=== PATIENT | female | born 1955 | race Caucasian/White ===

== ENCOUNTER 2018-11-18 23:18 | Inpatient (IN) | payer BC, OTHER ==
--- OUTSIDE RECORDS SUMMARY | 2018-11-18 23:23 | XMS REPORT | Continuity of Care Document ---
:1955 Author Organization Interface Problems Problem Status Onset Classification Date Comments Source Date Reported Z12.31 - ENCNTR Active 04/22/20 [facility] SCREEN MAMMOGRAM 17 [place] FOR [place] ABDOMINAL PAIN Active 06/12/20 [place] 15 [place] Hypothyroid Resolved 05/06/20 Problem 11/10/2015 OPID 15 [place] SCREENING COLON Active 05/05/20 [place] CANCER-V76.51 / 15 [place] FAMILY H SCREENING Inactive 05/01/20 Condition 05/01/2015 EXAMINATION FOR 15 Medical OTHER SPECIFIED Group VIRAL DISEASES FH COLON CANCER Active 05/01/20 Condition 05/01/2015 15 Medical Group SCREENING FOR Active 05/01/20 Condition 05/01/2015 COLON CANCER 15 Medical Group Family history of Active 05/01/20 Problem 11/11/2018 Data cancer of 15 migrated Medical colon<sup>2</sup> from [facility], [facility] OPID on 05/17/15. [place] Family history of Active 05/01/20 Problem 11/10/2015 Data OPID cancer of 15 migrated [place] colon<sup>5</sup> from [facility], [facility] [place] on 05/17/15. [place] Screening for Active 05/01/20 Problem 11/10/2015 Data OPID malignant 15 migrated [place] neoplasm of from [facility], colon<sup>12</sup [facility] [place] > on 05/17/15. [place] OSTEOPENIA Active 01/29/20 Condition 05/01/2015 15 Medical Group Osteopenia<sup>5, Active 01/29/20 Problem 11/11/2018 Data 6</sup> 15 migrated Medical from [facility], [facility] OPID on 04/02/15. [place] Osteopenia<sup>10 Active 01/29/20 Problem 11/10/2015 Data OPID , 11</sup> 15 migrated [facility] from [facility], [facility] Sugar on 04/02/15. [place] Osteopenia<sup>9< Active 01/29/20 Problem 05/12/2015 Data [place] /sup> 15 migrated Land from [facility] on 04/02/15. AFTERCARE, Active 07/23/20 Condition 05/01/2015 LONG-TERM USE, 14 Medical MEDICATIONS NEC Group Aftercare<sup>2</ Resolved 07/23/20 Problem 11/10/2015 Data OPID sup> 14 migrated [facility] from [facility], [facility] Sugar on 02/22/15. [place] CHEST PAIN, Inactive 04/15/20 Condition 05/01/2015 ATYPICAL 14 Medical Group Atypical chest Active 04/15/20 Problem 11/10/2015 Data OPID pain<sup>4</sup> 14 migrated [facility] from [facility], [facility] Sugar on 02/22/15. Land HALLUX VALGUS, Inactive 11/07/19 Condition 05/01/2015 ACQUIRED 14 Medical Group HAMMER TOE, Inactive 11/07/19 Condition 05/01/2015 ACQUIRED 14 Medical Group ONYCHOMYCOSIS Inactive 11/07/19 Condition 05/01/2015 14 Medical Group Acquired hallux Active 11/07/19 Problem 11/10/2015 Data OPID valgus<sup>1</sup 14 migrated [place] > from [facility], [facility] Sugar on 02/22/15. [place] Hammer Active 11/07/19 Problem 11/10/2015 Data OPID toe<sup>6</sup> 14 migrated [facility] from [facility], [facility] Sugar on 02/22/15. [place] Hammer Active 11/07/19 Problem 05/12/2015 Data [place] toe<sup>5</sup> 14 migrated Land from [facility] on 02/22/15. ARTHRITIS Active 05/01/20 Condition 05/01/2015 13 Medical Group Arthritis<sup>1</ Active 05/01/20 Problem 11/11/2018 Data MH sup> 13 migrated Medical from [facility], [facility] OPID on 02/22/15. [place] Arthritis<sup>3</ Active 05/01/20 Problem 11/10/2015 Data OPID sup> 13 migrated [facility] from [facility], [facility] Sugar on 02/22/15. [place] ROUTINE Inactive 03/21/20 Condition 05/01/2015 GYNECOLOGICAL 12 Medical EXAMINATION Group HYPERTENSION Active Condition 05/01/2015 Medical Group HYPOTHYROIDISM Active Condition 05/01/2015 Medical Group HYPERLIPIDEMIA Active Condition 05/01/2015 Medical Group Acute diarrhea Active Problem 11/11/2018 Medical Group, OPID [place] Asthma Resolved Problem 11/11/2018 Medical Group, OPID [place], [place] Ongoing use of Active Problem 11/11/2018 possibly toxic Medical medication Group, OPID [place] Benign tumor of Resolved Problem 11/11/2018 breast Medical Group, OPID [place] FHx: breast Active Problem 11/11/2018 cancer Medical Group, OPID [place] FH: ovarian Active Problem 11/11/2018 cancer Medical Group, OPID [place] History of acute Active Problem 11/11/2018 pancreatitis Medical Group, OPID [place] Histoplasmosis Resolved Problem 11/11/2018 Medical Group, OPID [place] Hyperlipidemia<leyva Active Problem 11/11/2018 Data p>3</sup> migrated Medical from [facility], [facility] OPID on 02/22/15. [place] Hypertension Active Problem 11/11/2018 Medical Group, OPID [place], [place] Hypothyroidism<leyva Active Problem 11/11/2018 Data p>4</sup> migrated Medical from [facility], [facility] OPID on 02/22/15. [place] Obesity Active Problem 11/11/2018 Medical Group, OPID [place], [place] Fatty liver Active Problem 11/11/2018 Medical Group, OPID [place] Acute Active Problem 11/10/2015 OPID pancreatitis [place] Heartburn Active Problem 11/10/2015 OPID [place], [place] Hyperlipidemia<leyva Active Problem 11/10/2015 Data OPID p>7</sup> migrated [facility] from [facility], [facility] on 02/22/15. [place] Hypertensive Resolved Problem 11/10/2015 Data OPID episode<sup>8</leyva migrated [place] p> from [facility], [facility] on 02/22/15. [place] Hypothyroidism<leyva Active Problem 11/10/2015 Data OPID p>9</sup> migrated [facility] from [facility], [facility] [place] on 02/22/15. [place] Vertigo Resolved Problem 11/10/2015 OPID [place] Hyperlipidemia<leyva Active Problem 05/12/2015 Data [place] p>6</sup> migrated Land from [facility] on 02/22/15. Hypertensive Active Problem 05/12/2015 Data [place] episode<sup>7</leyva migrated Land p> from [facility] on 02/22/15. Hypothyroidism<leyva Active Problem 05/12/2015 Data [place] p>8</sup> migrated Land from [facility] on 02/22/15. CHRONIC Active Sugar PANCREATITIS Land Medications Medication Details Route Status Patient Ordering Order Source Instructions Provider Date Phentermine 37.5 mg=1 Active 02/15/ Hydrochloride 37.5 MG cap, PO, 2018 Medical Oral Capsule Daily, # 30 Group tab, 0 Refill(s) telmisartan 80 mg 80 mg=1 tab, Active 09/14/ oral tablet PO, Daily, # 2017 Medical 90 tab, 3 Group Refill(s), Pharmacy: [facility] [id number] Hydrochlorothiazide 1 tab, PO, Active [place] 12.5 MG / telmisartan Daily, # 30 2014 [place] 80 MG Oral Tablet tab, 0 [Micardis-HCT Refill(s) 80/12.5] Levothyroxine Sodium 125 Active Sugar 0.125 MG Oral Tablet microgram=1 2014 [facility] [Synthroid] tab, PO, Daily, # 30 tab, 0 Refill(s) azilsartan medoxomil 1 tab, No Longer Sugar 40 MG / Route: PO, Active 2014 Chlorthalidone 12.5 Dosing MG Oral Tablet Weight 88.636, kg, Daily, Start date: 06/14/15 9:00:00, Duration: 30 day, Stop date: 07/13/15 9:00:00 Diovan 160 mg, 1 Inactive [place] tab, Route: 2014 PO, Drug form: TAB, Daily, Start date: 06/14/15 9:00:00, Duration: 30 day, Stop date: 07/13/15 9:00:00Notes : Same as Diovan hydrochlorothiazide 12.5 mg, 0.5 Inactive [place] 25 mg oral tablet tab, Route: 2014 [facility] PO, Drug form: TAB, Daily, Start date: 06/14/15 9:00:00, Duration: 30 day, Stop date: 07/13/15 9:00:00Notes : (Same as: Hydrodiuril) With food. Motrin 200 mg, 1 No Longer [place] tab, Route: Active 2014 [facility] PO, Drug form: TAB, Q6H, Dosing Weight 88.636, kg, PRN Headache 6-10, Start date: 06/13/15 11:20:00, Duration: 30 day, Stop date: 07/13/15 11:19:00Note s: (Same as: Advil) Give with food. Synthroid 125 No Longer [place] microgram, 1 Active 2014 tab, Route: PO, Drug form: TAB, Q630AM, Dosing Weight 88.636, kg, Start date: 06/13/15 9:42:00, Duration: 30 day, Stop date: 07/13/15 6:30:00Notes : Take 1 hour before or 2 hours after meal; Enteral feeds may interefere with the absorption of this medication. (Same as:Levothroi d) Tums 500 mg, 1 No Longer [place] tab, Route: Active 2014 CHEW, Drug form: CHEWTAB, Daily, Dosing Weight 88.636, kg, PRN as needed for indigestion, Start date: 06/13/15 9:25:00, Duration: 30 day, Stop date: 07/13/15 9:24:00Notes : (Same As: Tums) Calcium Carbonate 500 fu=237 mg elemental calcium Dose= mg calcium carbonate ( mg elemental calcium) Tums =1 tab, Active [place] CHEW, Daily, 2014 PRN acid reflux, 0 Refill(s) Enoxaparin 40 mg, 0.4 No Longer Sugar mL, Route: Active 2014 [facility] SUB-Q, Drug form: INJ, [id number], Dosing Weight 88.636, kg, For CrCl >=30 mL/min, Start date: 06/12/15 14:00:00, Duration: 30 day, Stop date: 07/11/15 14:00:00Note s: (Same as: Lovenox) Zofran 4 mg, 2 mL, No Longer [place] Route: IVP, Active 2014 Drug form: INJ, Q6H, Dosing Weight 88.636, kg, PRN as needed for nausea/vomit ing, Priority: Routine, Start date: 06/12/15 13:10:00, Duration: 30 day, Stop date: 07/12/15 13:09:00Note s: (Same as: Zofran) MEDICATION WASTE Product Size: 4 mg Product Wasted: ___ mg Morphine 4 mg, 2 mL, No Longer [place] Route: IVP, Active 2014 Drug form: INJ, Q4H, Dosing Weight 88.636, kg, PRN Pain Score 6-10, Priority: Routine, Start date: 06/12/15 13:10:00, Duration: 30 day, Stop date: 07/12/15 13:09:00Note s: (Same as:MORPhine Sulfate) Saline Flush 0.9% 10 ml, No Longer [place] Route: IVP, Active 2014 Drug Form: INJ, Dosing Weight 88.636, kg, PRN, PRN Line Flush, Start date: 06/12/15 13:07:00, Duration: 30 day, Stop date: 07/12/15 13:06:00Note s: (Same as: BD Posiflush) Glucose 50 MG/ML / 1,000 mL, No Longer [place] Sodium Chloride Rate: 125 2014 0.0769 MEQ/ML ml/hr, Injectable Solution Infuse over: 8 hr, Route: IV, Dosing Weight 88.636 kg, Total Volume: 1,000, Start date: 06/12/15 13:07:00, Stop date: 07/12/15 13:06:00 Ondansetron 4 mg, 2 mL, No Longer [place] Route: IVP, Active 2014 Drug form: INJ, Q6H, Dosing Weight 88.636, kg, PRN Nausea & Vomiting, Start date: 06/12/15 13:07:00, Duration: 30 day, Stop date: 07/12/15 13:06:00Note s: (Same as: Zofran) MEDICATION WASTE Product Size: 4 mg Product Wasted: ___ mg Morphine 2 mg, 1 mL, No Longer [place] Route: IVP, Active 2014 [facility] Drug form: INJ, Q4H, Dosing Weight 88.636, kg, PRN Pain Score 7-10, Start date: 06/12/15 13:07:00, Duration: 30 day, Stop date: 07/12/15 13:06:00Note s: (Same as:MORPhine Sulfate) Morphine 4 mg, 2 mL, Inactive [place] Route: IVP, 2014 [facility] Drug form: INJ, ONCE, Dosing Weight 89.568, kg, Priority: STAT, Start date: 06/12/15 10:56:00, Stop date: 06/12/15 10:56:00Note s: (Same as:MORPhine Sulfate) Ondansetron 4 mg, 2 mL, Inactive [place] Route: IVP, 2014 [facility] Drug form: INJ, ONCE, Dosing Weight 89.568, kg, Priority: STAT, Start date: 06/12/15 10:56:00, Stop date: 06/12/15 10:56:00Note s: (Same as: Zofran) MEDICATION WASTE Product Size: 4 mg Product Wasted: ___ mg Saline Flush 0.9% 10 mL, No Longer [place] Route: IVP, Active 2014 [facility] Drug Form: INJ, Dosing Weight 89.568, kg, PRN, PRN Line Flush, Start date: 06/12/15 10:56:00, Duration: 30 day, Stop date: 07/12/15 10:55:00Note s: (Same as: BD Posiflush) Sodium Chloride 0.154 1,000 mL, Inactive [place] MEQ/ML Injectable 1000 ml/hr, 2014 Solution Infuse Over: 1 hr, Route: IV, 1,000, Drug form: INJ, ONCE, Priority: STAT, Dosing Weight 89.568 kg, Start date: 06/12/15 10:56:00, Duration: 1 doses or times, Stop date: 06/12/15 10:56:00 Naloxone 0.1 mg, 0.25 Inactive Sugar mL, Route: 2014 [facility] IVP, Drug form: INJ, Q2MIN, Dosing Weight 90.909, kg, PRN Narcotic Reversal, Start date: 05/09/15 9:17:00, Duration: 4 doses or times, Stop date: Limited # of timesNotes: (Same as: Narcan) Flumazenil 0.1 mg, 1 Inactive Sugar mL, Route: 2014 [facility] IVP, Drug form: INJ, Q5Min, Dosing Weight 90.909, kg, PRN Other -See Comment, Start date: 05/09/15 9:17:00, Duration: 30 day, Stop date: 06/08/15 9:16:00Notes : (Same as: Romazicon) Ranitidine 150 MG 150 mg=1 Active [place] Oral Tablet [Zantac] tab, PO, 2014 [facility] PRN, 0 Refill(s) telmisartan 80 MG 80 mg=1 tab, Active [place] Oral Tablet PO, Daily, 0 2014 [facility] [Micardis] Refill(s) Levothyroxine Sodium 125 Active [place] 0.125 MG Oral Tablet microgram=1 2014 [facility] [Synthroid] tab, PO, Daily, 0 Refill(s) PREPOPIK 10-3.5-12 follow Active MG-GM-GM PACK handout 2014 Medical directions Group SYNTHROID 125 MCG 1 po daily Active TABS 2012 Medical Group MICARDIS HCT 80-12.5 1 qd Active MG TABS 2012 Medical Group SYNTHROID 125 MCG 1 po daily Active TABS 2013 Medical Group SYNTHROID 125 MCG 1 po daily Active TABS 2013 Medical Group SYNTHROID 125 MCG 1 po daily Active TABS 2013 Medical Group Allergies, Adverse Reactions, Alerts Substance Category Reaction Severity Reaction Status Date Comments Source type Reported SULFA Drug SULFA allergy Medical Group sulfa Assertion rash Drug Active Data drugs<sup>1 allergy migrated Medical </sup> from [facility] on 04/24/15. Originally documented as SULFA. Immunizations Immunization Date Given Site Status Last Updated Comments Source Results Order Name Results Value Reference Date Interpretation Comments Source Range Breast Breast Mammo 05/22 - OPID Mammo Scrn Scrn DAVID /2017 - [place] DAVID incl incl CAD MA [facility] CAD MA Read by: Robert Lanier MD Dictated Date/time: 05/22/18 14:26 BILATERAL DIGITAL SCREENING MAMMOGRAM WITH CAD: 05/22/2018 Electronically Signed by: Robert Lanier MD 05/22/18 14 :26 FINAL REPORT CLINICAL: /Routine. Current study was evaluated with a Computer Aided Detection (CAD) system. COMPARISON:Comparison is made to exams dated: 04/29/2017 mammogram, 2015 mammogram, and 07/04/2013 mammogram - [facility]. TECHNIQUE: Mammographic views were obtained using digital acquisition. Current study was also evaluated with a Computer Aided Detection (CAD) system. FINDINGS: There are scattered fibroglandular densities in both breasts. There are multiple circumscribed masses seen bilaterally and are stable. There are post operative findings in the right breast. No significant masses, calcifications, or other findings are seen in either breast. There has been no significant interval change. IMPRESSION: BENIGN RECOMMENDATION:Multiple stable circumscribed masses bilaterally. There is no mammographic evidence of malignancy. A 1 year screening mammogram is recommended.(05/23/2019) This exam was interpreted at [id number] at [facility]. Professional services are provided by the [facility]. Robert Lanier M.D. ak/penrad:05/22/2018 14:26:17 Auto Hauler(s): Naomy Alegre [facility] letter sent: BI-RADS 1/2 Mammogram BI-RADS: 2 Benign Breast Breast Mammo - BREAST MAMMO SCRN DAVID INCL CAD MA 04/29 - OPID Mammo Scrn Scrn DAVID /2016 - [place] DAVID incl incl CAD MA BILATERAL DIGITAL SCREENING MAMMOGRAM WITH CAD: 2016 [facility] CAD MA CLINICAL: Routine/Z12.31. Read by: Gloria Herbert DO Dictated Date/time: 04/29/17 16:05 Electronically Signed by: Gloria Herbert DO 04/29/17 16:05 FINAL REPORT Current study was evaluated with a Computer Aided Detection (CAD) system. Comparison is made to exams dated: 11/07/2015 mammogram, 07/04/2013 mammogram - [facility], 02/23/2012 mamm[facility] - [facility] and 10/21/2010 mammogram. There are scattered fibroglandular densities in both breasts. There are post operative findings in the right breast. No significant masses, calcifications, or other findings are seen in either breast. There has been no significant interval change. IMPRESSION: BENIGN There is no mammographic evidence of malignancy. A 1 year screening mammogram is recommended. Professional services are provided by the [facility]. Dr. Gloria Herbert D.O. ht/penrad:04/29/2017 16:05:56 Auto Hauler: Mary LONGORIA (R)), [facility] This exam was dictated and interpreted by [id number] at [facility][note 3]. letter sent: Normal exam Mammogram BI-RADS: 2 Benign Digital Digital - DIGITAL MAMMO SCREENING DAIVD MA 11/07 - OPID Mammo Mammo /2015 - [place] Screening Screening BILATERAL DIGITAL SCREENING MAMMOGRAM WITH CAD: 2015 [facility] David MA David MA CLINICAL: Routine/Same. Read by: Robert Lanier MD Dictated Date/time: 11/07/15 09:57 Electronically Signed by: Robert Lanier MD 11/07/15 09:57 FINAL REPORT Current study was evaluated with a Computer Aided Detection (CAD) system. Comparison is made to exams dated: 07/04/2013 mammogram - [facility] and 02/23/2012 mammogram - [facility]. There are scattered fibroglandular densities in both breasts. Multiple well circumscribed masses are present in both breasts. No significant masses, calcifications, or other findings are seen in either breast. There has been no significant interval change. IMPRESSION: BENIGN There is no mammographic evidence of malignancy. A 1 year screening mammogram is recommended. Robert martin/penrad:11/07/2015 09:57:52 Auto Hauler: Mary LUCERO (R)(Ana), [facility] This exam was dictated and interpreted by [id number] at [facility]. letter sent: Normal exam Mammogram BI-RADS: 2 Benign CHEM PANEL eGFR 70 06/14 Result Comment: The eGFR is calculated using the CKD-EPI formula. In most young, healthy individuals the eGFR will be >90 mL/ min/1.73m2. The eGFR declines with age. An eGFR of 60-89 may be normal in mL/min/1.73 /2014 some populations, particularly the elderly, for whom the CKD-EPI formula has not been extensively validated. Use of the eGFR is not recommended in the following populations: [place] m2 Individuals with unstable creatinine concentrations, including patients and those with serious co-morbid conditions. Patients with extremes in muscle mass or diet. The data above are obtained from the National Kidney Disease Education Program (NKDEP) which additionally recommends that when the eGFR is used in patients with extremes of body mass index for purposes of drug dosing, the eGFR should be multiplied by the estimated BMI. CHEM PANEL Potassium 3.7 meq/L 3.5 - 5.1 06/14 [place] CHEM PANEL CO2 28 meq/L 24 - 32 06/14 [place] CHEM PANEL Chloride Lvl 110 meq/L 95 - 109 06/14 [place] CHEM PANEL Calcium Lvl 8.2 mg/dL 8.5 - 10.5 06/14 [place] CHEM PANEL Glucose Lvl 114 mg/dL 70 - 99 06/14 [place] CHEM PANEL BUN 7 mg/dL 7 - 22 06/14 [place] CHEM PANEL Creatinine 0.9 mg/dL 0.5 - 1.4 06/14 [place] l [place] CHEM PANEL Sodium Lvl 143 meq/L 135 - 145 06/14 [place] CHEM PANEL AGAP 8.7 meq/L 10.0 - 06/14 [place] 20.0 [place] HEMATOLOGY Hgb 12.2 g/dL 12.0 - 06/14 Sugar 16.0 [facility] HEMATOLOGY Hct 36.8 % 36.0 - 06/14 [place] 48.0 /2014 [facility] HEMATOLOGY MCH 28.9 pg 27.0 - 06/14 [place] 31.0 /2014 [facility] HEMATOLOGY MCHC 33.0 g/dL 32.0 - 06/14 [place] 36.0 [facility] HEMATOLOGY MCV 87.6 fL 80.0 - 06/14 [place] 98.0 /2014 [facility] HEMATOLOGY WBC 4.7 K/CMM 3.7 - 10.4 06/14 [place] /2014 [facility] HEMATOLOGY RBC 4.21 M/CMM 4.20 - 06/14 [place] 5.40 /2014 [facility] HEMATOLOGY MPV 8.0 fL 7.4 - 10.4 06/14 [place] /2014 [facility] HEMATOLOGY RDW 14.0 % 11.5 - 06/14 [place] 14.5 /2014 [facility] HEMATOLOGY Platelet 205 K/CMM 133 - 450 06/14 [place] /2014 [facility] HEMATOLOGY Eosinophils 0.2 K/CMM 0.0 - 0.5 06/14 [place] # /2015 [facility] HEMATOLOGY Segs-Bands # 2.3 K/CMM 1.5 - 8.1 06/14 [place] /2014 [facility] HEMATOLOGY Monocytes # 0.5 K/CMM 0.0 - 0.8 06/14 [place] /2014 [facility] HEMATOLOGY Lymphocytes 1.7 K/CMM 1.0 - 5.5 06/14 [place] # /2014 [facility] HEMATOLOGY Basophils # 0.0 K/CMM 0.0 - 0.2 06/14 /2014 [facility] HEMATOLOGY Lymphocytes 36.4 % 20.0 - 06/14 [place] 40.0 /2014 [facility] HEMATOLOGY Segs 48.4 % 45.0 - 06/14 [place] 75.0 /2014 [facility] HEMATOLOGY Basophils 0.4 % 0.0 - 1.0 06/14 [place] /2014 [facility] HEMATOLOGY Eosinophils 5.0 % 0.0 - 4.0 06/14 [place] /2014 [facility] HEMATOLOGY Monocytes 9.8 % 2.0 - 12.0 06/14 [place] /2014 [facility] Abdomen wo Abdomen wo MRCP, 06/13/201506/13 - [facility] contrast contrast MRI /2014 - [facility] MRI HISTORY: Abdominal pain. Pancreatitis. Read by: Jcarlos Jackman MD Dictated Date/time: 06/13/15 13:14 Electronically Signed by: Jcarlos Jackman MD 06/13/15 14:06 FINAL REPORT TECHNIQUE: Multiplanar sequences through the bile ducts and upper abdomen were obtained. FINDINGS: The common bile duct measures 7 mm in diameter with mild tapered narrowing of the distal common bile duct, possibly related to acute pancreatitis.. Intrahepatic bile ducts are nondilated. No evidence of filling defects within the bile ducts. Thickwalled edematous gallbladder, new finding compared to abdomen right upper quadrant ultrasound dated 06/12/2015. No filling defects within the gallbladder noted. Nondilated pancreatic duct. The pancreas is not enlarged. Mild edema/inflammation noted near the distal body and tail of the pancreas which may reflect mild acute interstitial edematous pancreatitis. No evidence of peripancreatic fluid collections. CHEM PANEL Lipase Lvl 888 unit/L 73 - 393 06/13 [place] /2014 [place] ELECTROLYTE Sodium Lvl 143 meq/L 135 - 145 06/13 [place] S /2014 [place] ELECTROLYTE Potassium 3.7 meq/L 3.5 - 5.1 06/13 [place] S Lvl /2014 [place] ELECTROLYTE Glucose Lvl 121 mg/dL 70 - 99 06/13 [place] S /2014 [place] ELECTROLYTE Chloride Lvl 108 meq/L 95 - 109 06/13 [place] S /2014 [place] ELECTROLYTE Calcium Lvl 8.1 mg/dL 8.5 - 10.5 06/13 [place] S /2014 [place] ELECTROLYTE CO2 31 meq/L 24 - 32 06/13 [place] S /2014 [place] ELECTROLYTE Creatinine 0.9 mg/dL 0.5 - 1.4 06/13 [place] S Lvl [place] ELECTROLYTE BUN 9 mg/dL 7 - 22 06/13 [place] S /2014 [place] ELECTROLYTE eGFR 70 06/13 Result Comment: The eGFR is calculated using the CKD-EPI formula. In most young, healthy individuals the eGFR will be >90 mL/ min/1.73m2. The eGFR declines with age. An eGFR of 60-89 may be normal in S mL/min/1.73 /2014 some populations, particularly the elderly, for whom the CKD-EPI formula has not been extensively validated. Use of the eGFR is not recommended in the following populations: [place] m2 Individuals with unstable creatinine concentrations, including patients and those with serious co-morbid conditions. Patients with extremes in muscle mass or diet. The data above are obtained from the National Kidney Disease Education Program (NKDEP) which additionally recommends that when the eGFR is used in patients with extremes of body mass index for purposes of drug dosing, the eGFR should be multiplied by the estimated BMI. ELECTROLYTE AGAP 7.7 meq/L 10.0 - 06/13 [place] S 20.0 [place] HEMATOLOGY Eosinophils 0.2 K/CMM 0.0 - 0.5 06/13 [place] # /2014 [place] HEMATOLOGY Monocytes # 0.4 K/CMM 0.0 - 0.8 06/13 [place] /2014 [place] HEMATOLOGY Segs 54.5 % 45.0 - 06/13 MH [place] 75.0 /2014 [place] HEMATOLOGY Eosinophils 4.0 % 0.0 - 4.0 06/13 [place] /2014 [place] HEMATOLOGY Segs-Bands # 2.3 K/CMM 1.5 - 8.1 06/13 [place] /2014 [place] HEMATOLOGY Basophils 0.6 % 0.0 - 1.0 06/13 [place] HEMATOLOGY Plt Morph Normal 06/13 [place] /2014 [place] (06/13/15 5:50 AM) HEMATOLOGY Monocytes 9.9 % 2.0 - 12.0 06/13 [place] HEMATOLOGY Lymphocytes 31.0 % 20.0 - 06/13 MH [place] 40.0 [place] HEMATOLOGY Basophils # 0.0 K/CMM 0.0 - 0.2 06/13 /2014 [place] HEMATOLOGY Lymphocytes 1.3 K/CMM 1.0 - 5.5 06/13 [place] # /2014 [place] HEMATOLOGY MCHC 34.0 g/dL 32.0 - 06/13 [place] 36.0 /2014 [place] HEMATOLOGY RDW 13.2 % 11.5 - 06/13 MH [place] 14.5 /2014 [place] HEMATOLOGY Platelet 209 K/CMM 133 - 450 06/13 [place] /2014 [place] HEMATOLOGY MPV 7.5 fL 7.4 - 10.4 06/13 [place] /2014 [place] HEMATOLOGY Hgb 12.2 g/dL 12.0 - 06/13 [place] 16.0 /2014 [place] HEMATOLOGY RBC 4.15 M/CMM 4.20 - 06/13 MH [place] 5.40 /2014 [place] HEMATOLOGY Hct 35.8 % 36.0 - 06/13 MH [place] 48.0 /2014 [place] HEMATOLOGY MCV 86.2 fL 80.0 - 06/13 MH [place] 98.0 /2014 [place] HEMATOLOGY MCH 29.3 pg 27.0 - 06/13 MH [place] 31.0 [place] HEMATOLOGY WBC 4.3 K/CMM 3.7 - 10.4 06/13 [place] /2014 [place] LIPIDS VLDL 35 06/13 [place] /2014 [place] LIPIDS LDL 74 mg/dL <=99 mg/dL 06/13 [place] (Calculated) [place] LIPIDS CHD Risk 3.48 3.90 - 06/13 MH [place] 5.80 /2014 [place] LIPIDS Chol 153 mg/dL <=199 06/13 [place] mg/dL [place] LIPIDS HDL 44 mg/dL >=61 mg/dL 06/13 [place] LIPIDS Trig 173 mg/dL <=149 06/13 [place] mg/dL [place] CHEM PANEL eGFR 70 06/12 Result Comment: The eGFR is calculated using the CKD-EPI formula. In most young, healthy individuals the eGFR will be >90 mL/ min/1.73m2. The eGFR declines with age. An eGFR of 60-89 may be normal in [place] mL/min/1.73 /2014 some populations, particularly the elderly, for whom the CKD-EPI formula has not been extensively validated. Use of the eGFR is not recommended in the following populations: [place] m2 Individuals with unstable creatinine concentrations, including patients and those with serious co-morbid conditions. Patients with extremes in muscle mass or diet. The data above are obtained from the National Kidney Disease Education Program (NKDEP) which additionally recommends that when the eGFR is used in patients with extremes of body mass index for purposes of drug dosing, the eGFR should be multiplied by the estimated BMI. CHEM PANEL AST 308 unit/L 0 - 37 06/12 [place] CHEM PANEL Alk Phos 119 unit/L 39 - 136 06/12 [place] CHEM PANEL Bili Total 2.1 mg/dL 0.2 - 1.3 06/12 [place] CHEM PANEL ALT 502 unit/L 0 - 65 06/12 [place] CHEM PANEL Calcium Lvl 9.5 mg/dL 8.5 - 10.5 06/12 [place] CHEM PANEL CO2 31 meq/L 24 - 32 06/12 [place] CHEM PANEL Total 7.8 g/dL 6.4 - 8.4 06/12 [place] Protein [place] CHEM PANEL Albumin Lvl 4.0 g/dL 3.5 - 5.0 06/12 [place] CHEM PANEL Sodium Lvl 141 meq/L 135 - 145 06/12 [place] CHEM PANEL Potassium 3.6 meq/L 3.5 - 5.1 06/12 [place] Lvl [place] CHEM PANEL Chloride Lvl 103 meq/L 95 - 109 06/12 [place] CHEM PANEL Creatinine 0.9 mg/dL 0.5 - 1.4 09/17 [facility] [place] Lvl /2014 [place] CHEM PANEL Glucose Lvl 97 mg/dL 70 - 99 06/12 [place] /2014 [place] CHEM PANEL BUN 11 mg/dL 7 - 22 06/12 [place] /2014 [place] CHEM PANEL A/G Ratio 1.1 0.7 - 1.6 06/12 [place] /2014 [place] CHEM PANEL AGAP 10.6 meq/L 10.0 - 06/12 [place] 20.0 /2014 [place] CHEM PANEL B/C Ratio 12 6 - 25 06/12 [place] /2014 [place] CHEM PANEL Globulin 3.8 g/dL 2.0 - 4.0 06/12 [place] /2014 [place] CHEM PANEL Lipase Lvl 13077 73 - 393 06/12 [facility] [place] unit/L /2014 [place] CHEM PANEL Amylase Lvl 569 unit/L 25 - 115 06/12 [place] /2014 [place] HEMATOLOGY Eosinophils 0.7 % 0.0 - 4.0 06/12 [place] /2014 [place] HEMATOLOGY Segs-Bands # 7.4 K/CMM 1.5 - 8.1 06/12 [place] HEMATOLOGY Basophils 0.4 % 0.0 - 1.0 06/12 [place] /2014 [place] HEMATOLOGY Lymphocytes 1.1 K/CMM 1.0 - 5.5 06/12 [place] # /2014 [place] HEMATOLOGY Monocytes # 0.6 K/CMM 0.0 - 0.8 06/12 [place] /2014 [place] HEMATOLOGY Segs 80.1 % 45.0 - 06/12 [facility] [place] 75.0 /2015 [place] HEMATOLOGY Lymphocytes 12.3 % 20.0 - 06/12 [place] 40.0 /2015 [place] HEMATOLOGY Monocytes 6.5 % 2.0 - 12.0 06/12 [place] /2014 [place] HEMATOLOGY Eosinophils 0.1 K/CMM 0.0 - 0.5 06/12 [facility] [place] # /2015 [place] HEMATOLOGY Basophils # 0.0 K/CMM 0.0 - 0.2 06/12 [place] /2014 [place] HEMATOLOGY Platelet 260 K/CMM 133 - 450 06/12 [place] /2014 [place] HEMATOLOGY MPV 7.9 fL 7.4 - 10.4 06/12 [place] /2014 [place] HEMATOLOGY RDW 13.2 % 11.5 - 06/12 [place] 14.5 /2015 [place] HEMATOLOGY MCHC 33.4 g/dL 32.0 - 06/12 [facility] [place] 36.0 /2015 [place] HEMATOLOGY WBC 9.2 K/CMM 3.7 - 10.4 06/12 [place] /2014 [facility] HEMATOLOGY MCH 28.8 pg 27.0 - 06/12 [place] 31.0 /2014 [facility] HEMATOLOGY Hct 42.3 % 36.0 - 06/12 [place] 48.0 /2014 [facility] HEMATOLOGY MCV 86.2 fL 80.0 - 06/12 [place] 98.0 /2014 [facility] HEMATOLOGY Hgb 14.1 g/dL 12.0 - 06/12 [place] 16.0 [facility] HEMATOLOGY RBC 4.91 M/CMM 4.20 - 06/12 [place] 5.40 /2014 [facility] Abdomen RUQ Abdomen RUQ ABDOMEN RIGHT UPPER QUADRANT ULTRASOUND, 06/12/201506/12 - [facility] US US /2014 - [facility] HISTORY: Abdominal pain. Read by: Jcarlos Jackman MD Dictated Date/time: 06/12/15 12:02 Electronically Signed by: Jcarlos Jackman MD 06/12/15 12:05 FINAL REPORT The gallbladder is normal in size with no thickening of the gallbladder wall or gallstones. The liver is extremely echogenic compatible with fatty change without evidence of liver mass. The common bile duct measures 8 mm in diameter which is mildly dilated. Nondilated intrahepatic bile ducts. The pancreas is obscured by bowel gas. Normal right kidney. The visualized portions of the aorta and inferior vena cava look normal. No evidence of ascites. CONCLUSION: Normal gallbladder. Severe fatty liver. Mildly dilated common bile duct (8 mm). Pancreas obscured by bowel gas. Abdomen Abdomen EXAM: Abdomen 3 views 06/12 - [facility] acute acute series /2014 [facility] [place] [facility] w w chest 1 HISTORY: Abdominal pain, acute chest 1 view DX view DX COMPARISON: None Read by: Kevin Watkins MD Dictated Date/time: 06/12/15 11:37 Electronically Signed by: Kevin Watkins MD 06/12/15 11:39 FINAL REPORT The lungs are clear. There is no effusion or pneumothorax. The heart size is normal. Small calcified granuloma in the left lung base. No free air is seen. There is a small amount of stool. No evidence of bowel obstruction. No urinary tract calcification is identified. There are pelvic phleboliths. Scoliosis is noted. IMPRESSION: No acute abnormality. ELECTROLYTE AGAP 14.5 meq/L 10.0 - 08 [facility] [place] S 20.0 [place] ELECTROLYTE eGFR 62 05/06 Result Comment: The eGFR is calculated using the CKD-EPI formula. In most young, healthy individuals the eGFR will be >90 mL/ min/1.73m2. The eGFR declines with age. An eGFR of 60-89 may be normal in [place] mL/min/1.73 /2014 some populations, particularly the elderly, for whom the CKD-EPI formula has not been extensively validated. Use of the eGFR is not recommended in the following populations: [place] m2 Individuals with unstable creatinine concentrations, including patients and those with serious co-morbid conditions. Patients with extremes in muscle mass or diet. The data above are obtained from the National Kidney Disease Education Program (NKDEP) which additionally recommends that when the eGFR is used in patients with extremes of body mass index for purposes of drug dosing, the eGFR should be multiplied by the estimated BMI. ELECTROLYTE BUN 17 mg/dL 7 - 22 05/06 [place] ELECTROLYTE Glucose Lvl 94 mg/dL 70 - 99 05/06 [place] ELECTROLYTE Creatinine 1.0 mg/dL 0.5 - 1.4 05/06 [place] S Lvl [place] ELECTROLYTE Sodium Lvl 141 meq/L 135 - 145 05/06 [place] ELECTROLYTE Chloride Lvl 105 meq/L 95 - 109 05/06 [place] ELECTROLYTE Potassium 3.5 meq/L 3.5 - 5.1 05/06 [place] S Lvl [place] ELECTROLYTE CO2 25 meq/L 24 - 32 05/06 [place] S /2014 [place] ELECTROLYTE Calcium Lvl 9.3 mg/dL 8.5 - 10.5 05/06 [place] HEMATOLOGY Hgb 13.2 g/dL 12.0 - 05/06 [place] 16.0 /2014 [place] HEMATOLOGY Hct 38.8 % 36.0 - 05/06 [place] 48.0 /2014 [place] HEMATOLOGY MCV 86.0 fL 80.0 - 05/06 [place] 98.0 /2014 [place] HEMATOLOGY MCH 29.3 pg 27.0 - 05/06 [place] 31.0 /2014 [place] HEMATOLOGY MCHC 34.0 g/dL 32.0 - 05/06 [place] 36.0 /2014 [place] HEMATOLOGY RDW 13.7 % 11.5 - 05/06 [place] 14.5 [place] HEMATOLOGY Platelet 260 K/CMM 133 - 450 05/06 [place] HEMATOLOGY MPV 7.6 fL 7.4 - 10.4 05/06 [place] HEMATOLOGY WBC 5.4 K/CMM 3.7 - 10.4 05/06 [place] HEMATOLOGY RBC 4.51 M/CMM 4.20 - 05/06 [place] 5.40 /2014 [place] HEMATOLOGY Segs-Bands # 2.9 K/CMM 1.5 - 8.1 05/06 [place] HEMATOLOGY Basophils # 0.0 K/CMM 0.0 - 0.2 05/06 [place] HEMATOLOGY Eosinophils 0.2 K/CMM 0.0 - 0.5 05/06 [place] HEMATOLOGY Monocytes # 0.5 K/CMM 0.0 - 0.8 05/06 [place] HEMATOLOGY Basophils 0.7 % 0.0 - 1.0 05/06 [place] HEMATOLOGY Lymphocytes 1.7 K/CMM 1.0 - 5.5 05/06 [place] HEMATOLOGY Eosinophils 3.3 % 0.0 - 4.0 05/06 [place] HEMATOLOGY Monocytes 9.0 % 2.0 - 12.0 05/06 [place] HEMATOLOGY Lymphocytes 31.9 % 20.0 - 05/06 [place] 40.0 [place] HEMATOLOGY Segs 55.1 % 45.0 - 05/06 [place] 75.0 [place] Chemistry CHOLESTEROL 215 mg/dl 120 - 200 01/28 [facility] Chemistry HDL 55 mg/dl 31 - 79 01/28 [facility] Chemistry LDL 133 mg/dl 0 - 130 01/28 [facility] Chemistry SODIUM 138 mmol/L 136 - 142 01/28 [facility] Chemistry POTASSIUM 4.2 mmol/L 3.3 - 5.0 01/28 [facility] Chemistry ALBUMIN 4.4 g/dL 3.5 - 5.0 01/28 [facility] Chemistry ALK PHOS 65 U/L 26 - 102 01/28 [facility] Chemistry SGOT (AST) 29 U/L 10 - 42 01/28 [facility] Chemistry SGPT (ALT) 58 U/L 11 - 43 01/28 [facility] Chemistry T4, TOTAL 10.7 ug/dl 5.1 - 11.1 01/28 [facility] Chemistry TSH 2.75 uIU/mL 0.34 - 01/28 [facility] Chemistry CHOLESTEROL 215 mg/dl 120 - 200 07/16 [facility] Chemistry HDL 51 mg/dl 31 - 79 07/16 [facility] Chemistry LDL 140 mg/dl 0 - 130 07/16 [facility] Chemistry CREATININE 0.88 mg/dL 0.46 - 07/16 1. [facility] Chemistry T4, TOTAL 10.8 ug/dl 5.1 - 11.1 07/16 [facility] Chemistry TSH 2.68 uIU/mL 0.34 - 07/16 [facility] Heat Treat Worker PAP SMEAR done 06/20 [facility] Heat Treat Worker PAP SMEAR done 06/20 [facility] Heat Treat Worker PAP SMEAR done 06/20 [facility] Pathology PAP SMEAR done 06/20 [facility] Heat Treat Worker PAP SMEAR Normal 12/16 [facility] Heat Treat Worker PAP SMEAR Normal 12/16 [facility] Heat Treat Worker PAP SMEAR Normal 12/16 [facility] Pathology PAP SMEAR Normal 12/16 [facility] Vital Signs Vital Sign Value Date Comments Source BMI Calculated 34.92 02/15/2018 [facility] Weight 92.273 02/15/2018 [facility] Systolic (mm Hg) 129 02/15/2018 [facility] Diastolic (mm Hg) 78 02/15/2018 [facility] Temperature Oral (F) 98.8 F 02/15/2018 [facility] Heart Rate 66 02/15/2018 [facility] Height 162.56 cm 02/15/2018 [facility] BMI Calculated 34.75 08/17/2017 [facility] Weight 91.818 08/17/2017 [facility] Height 162.56 cm 08/17/2017 [facility] Temperature Oral (F) 98.7 F 08/17/2017 [facility] Heart Rate 65 08/17/2017 [facility] Systolic (mm Hg) 113 08/17/2017 [facility] Diastolic (mm Hg) 69 08/17/2017 [facility] Systolic (mm Hg) 98 06/14/2015 [place] Diastolic (mm Hg) 64 06/14/2015 [place] Heart Rate 58 06/14/2015 [place] Respitory Rate 15 06/14/2015 [place] Temperature Oral (F) 98.6 F 06/14/2015 [place] Respitory Rate 16 06/14/2015 [place] Heart Rate 77 06/14/2015 [place] Temperature Oral (F) 98.0 F 06/14/2015 [place] Systolic (mm Hg) 107 06/14/2015 [place] Diastolic (mm Hg) 71 06/14/2015 [place] Systolic (mm Hg) 99 06/14/2015 [place] Diastolic (mm Hg) 62 06/14/2015 [place] Respitory Rate 20 06/14/2015 [place] Heart Rate 57 06/14/2015 [place] Temperature Oral (F) 97.9 F 06/14/2015 [place] Height 165.1 cm 06/12/2015 [place] BMI Calculated 32.52 06/12/2015 [place] Weight 88.636 06/12/2015 [place] Weight 88.636 06/12/2015 [place] Height 160.02 cm 05/06/2015 [place] Weight 90.909 05/06/2015 [place] BMI Calculated 35.5 05/06/2015 [place] Systolic (mm Hg) 138 05/06/2015 [place] Diastolic (mm Hg) 76 05/06/2015 [place] Respitory Rate 18 05/06/2015 [place] Heart Rate 75 05/06/2015 [place] Weight 204 05/01/2015 [facility] Temperature Oral (F) 99.1 F 05/01/2015 [facility] Heart Rate 76 05/01/2015 [facility] Systolic (mm Hg) 128 05/01/2015 [facility] Diastolic (mm Hg) 70 05/01/2015 [facility] Weight 198 01/28/2015 [facility] Temperature Oral (F) 97.5 F 01/28/2015 [facility] Heart Rate 64 01/28/2015 [facility] Systolic (mm Hg) 106 01/28/2015 [facility] Diastolic (mm Hg) 70 01/28/2015 [facility] Height 64.25 07/23/2014 [facility] Weight 190 07/23/2014 [facility] Temperature Oral (F) 98.3 F 07/23/2014 [facility] Heart Rate 64 07/23/2014 [facility] Systolic (mm Hg) 106 07/23/2014 [facility] Diastolic (mm Hg) 80 07/23/2014 [facility] Weight 193 04/15/2014 [facility] Temperature Oral (F) 98.6 F 04/15/2014 [facility] Heart Rate 80 04/15/2014 [facility] Systolic (mm Hg) 128 04/15/2014 [facility] Diastolic (mm Hg) 74 04/15/2014 [facility] Temperature Oral (F) 98.3 F 03/18/2014 [facility] Weight 194 03/18/2014 [facility] Systolic (mm Hg) 136 03/18/2014 [facility] Diastolic (mm Hg) 74 03/18/2014 [facility] Weight 194 02/26/2014 [facility] Temperature Oral (F) 98.3 F 02/26/2014 [facility] Heart Rate 88 02/26/2014 [facility] Systolic (mm Hg) 136 02/26/2014 [facility] Diastolic (mm Hg) 74 02/26/2014 [facility] Temperature Oral (F) 98.1 F 11/21/2013 [facility] Temperature Oral (F) 98.7 F 11/07/2013 [facility] Weight 189 06/20/2013 [facility] Systolic (mm Hg) 122 06/20/2013 [facility] Diastolic (mm Hg) 80 06/20/2013 [facility] Heart Rate 90 06/20/2013 [facility] Weight 191 05/01/2013 [facility] Temperature Oral (F) 98.5 F 05/01/2013 [facility] Heart Rate 80 05/01/2013 [facility] Systolic (mm Hg) 114 05/01/2013 [facility] Diastolic (mm Hg) 78 05/01/2013 [facility] Height 64 11/27/2012 [facility] Weight 187 11/27/2012 [facility] Temperature Oral (F) 98.4 F 11/27/2012 [facility] Heart Rate 72 11/27/2012 [facility] Systolic (mm Hg) 116 11/27/2012 [facility] Diastolic (mm Hg) 80 11/27/2012 [facility] Height 63 03/21/2012 [facility] Weight 188 03/21/2012 [facility] Systolic (mm Hg) 108 03/21/2012 [facility] Diastolic (mm Hg) 62 03/21/2012 [facility] Encounters Location Location Encounter Encounter Reason Attending ADM DC Status Source Details Type Number For Provider Date Date Visit [facility] [place] [id number] Elis 11/21 11/21 [place] Medical Visit [id number] [facility] Angel Cordero MD Group Podiatry [facility] [id number] Elis 02/26 02/26 [place] Medical Visit [id number] [facility] Angel Sheramn MD Group Internal Medicine [facility] [id number] 03/18 [place] Medical Visit [id number] [facility] Angel [place] MD Group Podiatry [facility] [id number] 04/15 [place] Medical [place] 07627 [facility] Angel [place] MD Group Internal Medicine [facility] Report [id number] 07/16 [place] Medical [address] [facility] Angel [place] MD Group Internal Medicine [facility] [id number] 07/23 [place] Medical Visit [id number] [facility] Angel [place] MD Group Internal Medicine [facility] Report [id number] Elis 01/28 01/28 [place] Medical [address] [facility] Angel [place] MD Group Internal Medicine [facility] [id number] Elis 01/28 01/28 [place] Medical [place] [id number] [facility] Angel [place] MD Group Internal Medicine [facility] [id number] Martin 05/01 05/01 [place] Medical [place] 06655 [place], Angel Cordero MD Group Gastroenter ology [facility] Lab Report [id number] [place] 05/01 05/01 [place] Medical [address] [place], Angel Cordero MD [facility] Gastroenter ology Outpatient [id number] MARTIN 05/01 Active [facility] 0 [facility] Bedded [id number] [place] 05/09 05/09 [place] [facility] 0 [place] Outpatient [id number] MARTIN 06/03 Active [facility] 3 [facility] Inpatient [id number] Layton Mendoza 06/12 06/14 [place] Outpatient [id number] ELIS 06/25 Active [facility] [place] [facility] [id number] NADIM JASPAL 07/11 Active [facility] [place] Outpatient [id number] ELIS 09/01 Active [facility] [place] [id number] NADIM JASPAL 09/09 Active [facility] [place] [id number] YOCASTA-ROBERT 09/22 Active [facility] 2 [place] Outpatient [id number] YOCASTA-ROBERT 11/07 [facility] [id number] Yocasta-Robert 11/07 11/08 [facility] Out[facility] 0 [facility] [place] Outpatient [id number] ELIS 02/17 Active [facility] 6 [place] Outpatient [id number] MARTIN 06/16 Active [facility] 1 [place] Outpatient [id number] ELIS 06/23 Active [facility] 0 [place] Outpatient [id number] ANA ERNSTPTA 10/25 Active [facility] [place] Outpatient [id number] ELIS 02/01 Active [facility] 2 [facility] Outpt Diag [id number] Yocasta-Robert 04/29 04/30 [facility] 1 [facility] [place] Outpatient [id number] ELIS 05/31 Active [facility] 4 [place] Outpatient [id number] 08/17 Active [facility] Outpatient [id number] Elis 08/17 08/18 [facility] Internal 5 [facility] Phone [id number] 09/14 09/16 Internal Message [facility] [place] [facility] [id number] ELIS 02/15 Active [facility] 6 [facility] Outpatient [id number] Elis 02/15 02/16 [facility] Internal 6 [facility]patient [id number] YOCASTA-ROBERT 04/24 [facility] [id number] Yocasta-Robert 04/24 04/24 [facility] [place] Pre-Reg 8 [facility] Outpatient [id number] EDVIN 06/05 [facility] 9 [facility] [place] Outpatient [id number] ELIS 06/21 [facility] 7 [place] Outpatient [id number] ELIS 07/19 [facility] 0 [place] Outpatient [id number] ELIS 11/22 [facility] 1 [place] Procedures Procedure Code Date Perfomer Comments Source Mammogram<sup>1</ [id number] 04/26/2018 Dr. Valera Medical sup> referred her for Group the mammagram Mammogram [id number] 06/26/2017 [facility] Colonoscopy [id number] 04/26/2016 [facility] Group mammogram 53452 07/18/2014 Completed [facility] Group vaginal Pap smear 92066 06/20/2013 done Medical results Group mammogram 06627 06/20/2013 Normal [facility] Group bone density 4002.65 02/02/2011 Done Medical Group vaginal Pap smear 99563 12/16/2010 Normal Medical results Group colonoscopy 68640 03/13/2010 Done [facility] mammogram 01237 06/13/1999 Normal [facility] Group Operation<sup>1</ [id number] 09/26/1994 right foot Medical sup> surgery Group Operation<sup>1</ [id number] 09/26/1994 right foot [facility]ID [place] sup> surgery [place] Operation<sup>1</ [id number] 09/26/1994 right foot [place] sup> surgery Operation<sup>2</ [id number] 09/26/1994 right foot Medical sup> surgery Group Breast biopsy and [id number] 09/26/1992 Medical related Group procedures Breast biopsy and [id number] 09/26/1992 [facility]ID [place] related [place] procedures Breast biopsy and [id number] 09/26/1992 [place] related procedures
--- OUTSIDE RECORDS SUMMARY | 2018-11-18 23:24 | XMS REPORT | Continuity of Care Document ---
:1955 Author Organization [facility] Care Team Providers Name Role Phone MD Iva, [place] Unavailable Unavailable Insurance Providers Payer name Policy type / Coverage Policy ID Covered democrat ID Policy [place] type [place] Encounters Encounter Performer Location Date Office Visit [place] Enrique MD [facility] [place] Apr 15, 2014 Internal Medicine Allergies, Adverse Reactions, Alerts Type Substance Reaction Status Drug allergy SULFA Active Problems Problem Effective Dates Problem Status HYPERTENSION Active HYPOTHYROIDISM Active HYPERLIPIDEMIA Active ROUTINE GYNECOLOGICAL EXAMINATION Mar 21, 2012 Inactive ARTHRITIS May 01, 2013 Active WELL WOMAN EXAM Jun 20, 2013 Inactive HALLUX VALGUS, ACQUIRED Nov 07, 2013 Active HAMMER TOE, ACQUIRED Nov 07, 2013 Active ONYCHOMYCOSIS Nov 07, 2013 Active CHEST PAIN, ATYPICAL Apr 15, 2014 Active Procedures Date Description Comments Mar 13, 2010 colonoscopy Done February 02, 2011 bone density Done Jun 13, 1999 mammogram Normal Dec 16, 2010 vaginal Pap smear results Normal Mar 21, 2012 smoking status never smoker May 01, 2013 smoking status never smoker Jun 20, 2013 smoking status never smoker Jun 20, 2013 vaginal Pap smear results done Jun 20, 2013 mammogram Normal Feb 26, 2014 smoking status never smoker Mar 18, 2014 smoking status Never smoker Apr 15, 2014 smoking status Never smoker Medications Medication Instructions Start Date Status SYNTHROID 125 MCG TABS 1 po daily May 01, 2013 Active MICARDIS HCT 80-12.5 MG TABS 1 qd May 01, 2013 Active Vital Signs Date Description Test Result Mar 21, 2012 height E&M HEIGHT 63 in Mar 21, 2012 weight E&M WEIGHT 188 lb Mar 21, 2012 blood pressure, systolic BP SYSTOLIC 108 mm Hg Mar 21, 2012 blood pressure, diastolic BP DIASTOLIC 62 mm Hg Nov 27, 2012 height E&M HEIGHT 64 in Nov 27, 2012 weight E&M WEIGHT 187 lb Nov 27, 2012 temperature E&M TEMPERATURE 98.4 deg f Nov 27, 2012 pulse rate E&M PULSE RATE 72 /min Nov 27, 2012 blood pressure, systolic BP SYSTOLIC 116 mm Hg Nov 27, 2012 blood pressure, diastolic BP DIASTOLIC 80 mm Hg May 01, 2013 weight E&M WEIGHT 191 lb May 01, 2013 temperature E&M TEMPERATURE 98.5 deg f May 01, 2013 pulse rate E&M PULSE RATE 80 /min May 01, 2013 blood pressure, systolic BP SYSTOLIC 114 mm Hg May 01, 2013 blood pressure, diastolic BP DIASTOLIC 78 mm Hg Jun 20, 2013 weight E&M WEIGHT 189 lb Jun 20, 2013 blood pressure, systolic, sitting, left arm BP SYS SIT L 122 mm Hg Jun 20, 2013 blood pressure, diastolic, sitting, left arm BP PALLAVI SIT L 80 mm Hg Jun 20, 2013 pulse rate, sitting, left PULSE SIT L 90 /min Jun 20, 2013 blood pressure, systolic BP SYSTOLIC 122 mm Hg Jun 20, 2013 pulse rate E&M PULSE RATE 90 /min Jun 20, 2013 blood pressure, diastolic BP DIASTOLIC 80 mm Hg Nov 07, 2013 temperature E&M TEMPERATURE 98.7 deg f Nov 21, 2013 temperature E&M TEMPERATURE 98.1 deg f Feb 26, 2014 weight E&M WEIGHT 194 lb Feb 26, 2014 temperature E&M TEMPERATURE 98.3 deg f Feb 26, 2014 pulse rate E&M PULSE RATE 88 /min Feb 26, 2014 blood pressure, systolic BP SYSTOLIC 136 mm Hg Feb 26, 2014 blood pressure, diastolic BP DIASTOLIC 74 mm Hg Mar 18, 2014 temperature E&M TEMPERATURE 98.3 deg f Mar 18, 2014 weight E&M WEIGHT 194 lb Mar 18, 2014 blood pressure, systolic BP SYSTOLIC 136 mm Hg Mar 18, 2014 blood pressure, diastolic BP DIASTOLIC 74 mm Hg Apr 15, 2014 weight E&M WEIGHT 193 lb Apr 15, 2014 temperature E&M TEMPERATURE 98.6 deg f Apr 15, 2014 pulse rate E&M PULSE RATE 80 /min Apr 15, 2014 blood pressure, systolic BP SYSTOLIC 128 mm Hg Apr 15, 2014 blood pressure, diastolic BP DIASTOLIC 74 mm Hg Results Date Description Test Name Value Reference Interpretation Status Dec 16, 2010 vaginal Pap smear PAP SMEAR Normal null results Jun 20, 2013 vaginal Pap smear PAP SMEAR done null results
--- OUTSIDE RECORDS SUMMARY | 2018-11-18 23:24 | XMS REPORT | Continuity of Care Document ---
:[address] [facility] Care Team Providers Name Role Phone MD Javi, Martin Unavailable Unavailable Insurance Providers Payer name Policy type / Coverage Policy ID Covered green party ID Policy [place] type [place] Encounters Encounter Performer Location Date Office Visit Martin Caldwell MD [facility] May 01, 2015 Gastroenterology Allergies, Adverse Reactions, Alerts Type Substance Reaction Status Drug allergy SULFA Active Problems Problem Effective Dates Problem Status HYPERTENSION Active HYPOTHYROIDISM Active HYPERLIPIDEMIA Active ROUTINE GYNECOLOGICAL EXAMINATION Mar 21, 2012 Inactive ARTHRITIS May 01, 2013 Active WELL WOMAN EXAM Jun 20, 2013 Inactive HALLUX VALGUS, ACQUIRED Nov 07, 2013 Inactive HAMMER TOE, ACQUIRED Nov 07, 2013 Inactive ONYCHOMYCOSIS Nov 07, 2013 Inactive CHEST PAIN, ATYPICAL Apr 15, 2014 Inactive AFTERCARE, LONG-TERM USE, MEDICATIONS NEC Jul 23, 2014 Active OSTEOPENIA January 28, 2015 Active SCREENING EXAMINATION FOR OTHER SPECIFIED VIRAL May 01, 2015 Inactive DISEASES FH COLON CANCER May 01, 2015 Active SCREENING FOR COLON CANCER May 01, 2015 Active Procedures Date Description Comments Mar 13, [...] Apr 15, 2014 smoking status Never smoker Jul 18, 2014 mammogram Completed Jul 23, 2014 smoking status Never smoker January 28, 2015 smoking status Never smoker May 01, 2015 smoking status Never smoker Medications Medication Instructions Start Date Status SYNTHROID 125 MCG TABS 1 po daily May 01, 2013 Active MICARDIS HCT 80-12.5 MG TABS 1 qd May 01, 2013 Active PREPOPIK 10-3.5-12 MG-GM-GM PACK follow handout directions May 01, 2015 Active Vital Signs Date Description Test Result Mar 21, 2012 height E&M - 8302-2 HEIGHT 63 in Mar 21, 2012 weight E&M - 3141-9 WEIGHT 188 lb Mar 21, 2012 blood pressure, systolic - 8480-6 BP SYSTOLIC 108 mm Hg Mar 21, 2012 blood pressure, diastolic - 8462-4 BP DIASTOLIC 62 mm Hg Nov 27, 2012 height E&M - 8302-2 HEIGHT 64 in Nov 27, 2012 weight E&M - 3141-9 WEIGHT 187 lb Nov 27, 2012 temperature E&M TEMPERATURE 98.4 deg f Nov 27, 2012 pulse rate E&M - 8867-4 PULSE RATE 72 /min Nov 27, 2012 blood pressure, systolic - 8480-6 BP SYSTOLIC 116 mm Hg Nov 27, 2012 blood pressure, diastolic - 8462-4 BP DIASTOLIC 80 mm Hg May 01, 2013 weight E&M - 3141-9 WEIGHT 191 lb May 01, 2013 temperature E&M TEMPERATURE 98.5 deg f May 01, 2013 pulse rate E&M - 8867-4 PULSE RATE 80 /min May 01, 2013 blood pressure, systolic - 8480-6 BP SYSTOLIC 114 mm Hg May 01, 2013 blood pressure, diastolic - 8462-4 BP DIASTOLIC 78 mm Hg Jun 20, 2013 weight Tierra&M - 3141-9 WEIGHT 189 lb Jun 20, 2013 blood pressure, systolic, sitting, left arm BP SYS SIT L 122 mm Hg Jun 20, 2013 blood pressure, diastolic, sitting, left arm BP PALLAVI SIT L 80 mm Hg Jun 20, 2013 pulse rate, sitting, left PULSE SIT L 90 /min Jun 20, 2013 blood pressure, systolic - 8480-6 BP SYSTOLIC 122 mm Hg Jun 20, 2013 pulse rate E&M - 8867-4 PULSE RATE 90 /min Jun 20, 2013 blood pressure, diastolic - 8462-4 BP DIASTOLIC 80 mm Hg Nov 07, 2013 temperature E&M TEMPERATURE 98.7 deg f Nov 21, 2013 temperature E&M TEMPERATURE 98.1 deg f Feb 26, 2014 weight E&M - 3141-9 WEIGHT 194 lb Feb 26, 2014 temperature E&M TEMPERATURE 98.3 deg f Feb 26, 2014 pulse rate E&M - 8867-4 PULSE RATE 88 /min Feb 26, 2014 blood pressure, systolic - 8480-6 BP SYSTOLIC 136 mm Hg Feb 26, 2014 blood pressure, diastolic - 8462-4 BP DIASTOLIC 74 mm Hg Mar 18, 2014 temperature E&M TEMPERATURE 98.3 deg f Mar 18, 2014 weight E&M - 3141-9 WEIGHT 194 lb Mar 18, 2014 blood pressure, systolic - 8480-6 BP SYSTOLIC 136 mm Hg Mar 18, 2014 blood pressure, diastolic - 8462-4 BP DIASTOLIC 74 mm Hg Apr 15, 2014 weight E&M - 3141-9 WEIGHT 193 lb Apr 15, 2014 temperature E&M TEMPERATURE 98.6 deg f Apr 15, 2014 pulse rate E&M - 8867-4 PULSE RATE 80 /min Apr 15, 2014 blood pressure, systolic - 8480-6 BP SYSTOLIC 128 mm Hg Apr 15, 2014 blood pressure, diastolic - 8462-4 BP DIASTOLIC 74 mm Hg Jul 23, 2014 height E&M - 8302-2 HEIGHT 64.25 in Jul 23, 2014 weight E&M - 3141-9 WEIGHT 190 lb Jul 23, 2014 temperature E&M TEMPERATURE 98.3 deg f Jul 23, 2014 pulse rate E&M - 8867-4 PULSE RATE 64 /min Jul 23, 2014 blood pressure, systolic - 8480-6 BP SYSTOLIC 106 mm Hg Jul 23, 2014 blood pressure, diastolic - 8462-4 BP DIASTOLIC 80 mm Hg January 28, 2015 weight E&M - 3141-9 WEIGHT 198 lb January 28, 2015 temperature E&M TEMPERATURE 97.5 deg f January 28, 2015 pulse rate E&M - 8867-4 PULSE RATE 64 /min January 28, 2015 blood pressure, systolic - 8480-6 BP SYSTOLIC 106 mm Hg January 28, 2015 blood pressure, diastolic - 8462-4 BP DIASTOLIC 70 mm Hg May 01, 2015 weight E&M - 3141-9 WEIGHT 204 lb May 01, 2015 temperature E&M TEMPERATURE 99.1 deg f May 01, 2015 pulse rate E&M - 8867-4 PULSE RATE 76 /min May 01, 2015 blood pressure, systolic - 8480-6 BP SYSTOLIC 128 mm Hg May 01, 2015 blood pressure, diastolic - 8462-4 BP DIASTOLIC 70 mm Hg Results Date Description Test Name Value Reference Interpretation Status Jul 16, cholesterol, serum CHOLESTEROL 215 mg/dl 120-200 High 2013Jul 16, HDL cholesterol, HDL 51 mg/dl 31-79 2013 serum Jul 16, LDL cholesterol, LDL 140 mg/dl 0-130 High 2013 serum Jul 16, creatinine, serum CREATININE 0.88 mg/dL 0.46-1.20 2013Jul 16, thyroxine, serum, T4, TOTAL 10.8 ug/dl 5.1-11.1 2013 total Jul 16, thyroid stimulating TSH 2.68 uIU/mL 0.34-5.60 2013 hormone, serum January 28, cholesterol, serum CHOLESTEROL 215 mg/dl 120-200 High 2014January 28, HDL cholesterol, HDL 55 mg/dl 31-79 2014January 28, LDL cholesterol, LDL 133 mg/dl 0-130 High 2014January 28, sodium, serum SODIUM 138 mmol/L [phone] January 28, potassium, serum POTASSIUM 4.2 mmol/L 3.3-5.0 2014January 28, albumin, serum ALBUMIN 4.4 g/dL 3.5-5.0 2014January 28, alkaline phosphatase, ALK PHOS 65 U/L 26-102 2014January 28, aspartate SGOT (AST) 29 U/L 10-42 2014 aminotransferase (SGOT), serum January 28, alanine SGPT (ALT) 58 U/L 11-43 High 2014 aminotransferase (SGPT), serum January 28, thyroxine, serum, T4, TOTAL 10.7 ug/dl 5.1-11.1 2014January 28, thyroid stimulating TSH 2.75 uIU/mL 0.34-5.60 2014 hormone, serum Dec 16, vaginal Pap smear PAP SMEAR Normal null 2010 results Jun 20, vaginal Pap smear PAP SMEAR done null 2013 results
--- OUTSIDE RECORDS SUMMARY | 2018-11-18 23:24 | XMS REPORT | Continuity of Care Document ---
:1955 Author Organization [facility] Care Team Providers Name Role Phone MD Iva, [place] Unavailable Unavailable Insurance Providers Payer name Policy type / Coverage Policy ID Covered alliance party ID Policy [place] type [place] Encounters Encounter Performer Location Date Office Visit [place] Enrique MD [facility] [place] Mar 18, 2014 Podiatry Allergies, Adverse Reactions, Alerts Type Substance Reaction Status Drug allergy SULFA Active Problems Problem Effective Dates Problem Status HYPERTENSION Active HYPOTHYROIDISM Active HYPERLIPIDEMIA Active ROUTINE GYNECOLOGICAL EXAMINATION Mar 21, 2012 Inactive ARTHRITIS May 01, 2013 Active WELL WOMAN EXAM Jun 20, 2013 Active HALLUX VALGUS, ACQUIRED Nov 07, 2013 Active HAMMER TOE, ACQUIRED Nov 07, 2013 Active ONYCHOMYCOSIS Nov 07, 2013 Active Procedures Date Description Comments Mar 13, [...] Mar 18, 2014 smoking status Never smoker Medications Medication [...]
--- OUTSIDE RECORDS SUMMARY | 2018-11-18 23:24 | XMS REPORT | Continuity of Care Document ---
:1955 Author Organization [facility] Care Team Providers Name Role Phone MD Iva, [place] Unavailable Unavailable Insurance Providers Payer name Policy type / Coverage Policy ID Covered republican ID Policy [place] type [place] Encounters Encounter Performer Location Date Office Visit [place] Enrique MD [facility] [place] Feb 26, 2014 Internal Medicine Allergies, Adverse Reactions, Alerts [...] Feb 26, 2014 smoking status never smoker Medications Medication Instructions Start Date Status [...] mm Hg Jun 20, 2013 weight E&M - 3141-9 WEIGHT 189 lb Jun 20, [...] - 8462-4 BP DIASTOLIC 74 mm Hg Results Date Description Test Name Value Reference Interpretation Status Dec 16, 2010 vaginal Pap smear PAP SMEAR Normal null results Jun 20, 2013 vaginal Pap smear PAP SMEAR done null results
--- OUTSIDE RECORDS SUMMARY | 2018-11-18 23:24 | XMS REPORT | Continuity of Care Document ---
:1955 Author Organization [facility] Care Team Providers Name Role Phone MD Iva, [place] Unavailable Unavailable Insurance Providers Payer name Policy type / Coverage Policy ID Covered green party ID Policy [place] type [place] Encounters Encounter Performer Location Date Office Visit [place] Enrique MD [facility] [place] Nov 21, 2013 Podiatry Allergies, Adverse Reactions, Alerts Type Substance [...] results done Jun 20, 2013 mammogram Normal Medications Medication Instructions Start Date Status SYNTHROID [...] 2013 temperature E&M TEMPERATURE 98.1 deg f Results Date Description Test Name Value Reference Interpretation Status Dec 16, 2010 vaginal Pap smear PAP SMEAR Normal null results Jun 20, 2013 vaginal Pap smear PAP SMEAR done null results
--- OUTSIDE RECORDS SUMMARY | 2018-11-18 23:25 | XMS REPORT | Summary of Care ---
:1955 Author Organization [facility] Address [address], [place] [address]- Encounter HQ Estefani([facility]) [phone] Date(s): 05/09/15 - 05/09/15 [facility] [address] [place] [address]- Discharge Disposition: Home Attending Physician: Martin Caldwell MD Referring Physician: Martin Caldwell MD Vital Signs Most recent to oldest [Reference Range]: 1 Height 160.02 cm (05/06/15 2:28 PM) Most recent to oldest [Reference Range]: 1 Blood Pressure [90-140/60-90 mmHg] 138/76 mmHg (05/06/15 2:28 PM) Most recent to oldest [Reference Range]: 1 Respiratory Rate [14-20 BRMIN] 18 BRMIN (05/06/15 2:28 PM) Most recent to oldest [Reference Range]: 1 Peripheral Pulse Rate [60-100 bpm] 75 bpm (05/06/15 2:28 PM) Most recent to oldest [Reference Range]: 1 Weight 90.909 kg (05/06/15 2:28 PM) Most recent to oldest [Reference Range]: 1 Body Mass Index 35.5 m2 (05/06/15 2:28 PM) Problem List Condition Effective Dates Status Health Status Informant Acquired hallux valgus1 11/07/13 Active Aftercare2 07/23/14 Active Arthritis3 05/01/13 Active Atypical chest pain4 04/15/14 Active Hammer toe5 11/07/13 Active Heartburn(Confirmed) Active Hyperlipidemia6 Active Hypertension(Confirmed) Active Hypertensive episode7 Active Hypothyroid(Confirmed) Active Hypothyroidism8 Active Osteopenia9 01/28/15 Active 1Data migrated from [employer] on 02/22/15.2Data migrated from [employer] on 02/22/15.3Data migrated from [employer] on 02/22/15.4Data migrated from [employer] on 02/22/15.5Data migrated from [employer] on 02/22/15.6Data migrated from [employer] on 02/22/15.7Data migrated from [employer] on 02/22.8Data migrated from [employer] on 02/22/15.9Data migrated from [employer] on 04/02/15. Allergies, Adverse Reactions, Alerts Substance Reaction Severity Status sulfa drugs1 rash Active 1Data migrated from [employer] on 04/24/15. Originally documented as SULFA. Medications flumazenil 0.1 mg, 1 mL, Route: IVP, Drug form: INJ, Q5Min, Dosing Weight 90.909, kg, PRN Other -See Comment, Start date: 05/09/15 9:17:00, Duration: 30 day, Stop date: 06/08/15 9:16:00 Notes: (Same as: Romazicon) Start Date: 05/09/15 Stop Date: 05/09/15 Status: Discontinuedflumazenil 0.2 mg, 2 mL, Route: IVP, Drug form: INJ, PRN, Dosing Weight 90.909, kg, PRN Other -See Comment, Start date: 05/09/15 9:17:00, Duration: 1 doses or times, Stop date: Limited # of times Notes: (Same as: Romazicon) Start Date: 05/09/15 Stop Date: 05/09/15 Status: DiscontinuedMicardis 80 mg oral tablet 80 mg=1 tab, PO, Daily, 0 Refill(s) Start Date: 05/06/15 Status: Orderednaloxone 0.1 mg, 0.25 mL, Route: IVP, Drug form: INJ, Q2MIN, Dosing Weight 90.909, kg, PRN Narcotic Reversal,Start date: 05/09/15 9:17:00, Duration: 4 doses or times, Stop date: Limited # of times Notes: (Same as: Narcan) Start Date: 05/09/15 Stop Date: 05/09/15 Status: DiscontinuedSynthroid 125 mcg (0.125 mg) oral tablet 125 microgram=1 tab, PO, Daily, 0 Refill(s) Start Date: 05/06/15 Status: OrderedZantac 150 oral tablet 150 mg=1 tab, PO, PRN, 0 Refill(s) Start Date: 05/06/15 Status: Ordered Results ELECTROLYTES Most recent to oldest [Reference Range]: 1 Sodium Lvl [135-145 mEq/L] 141 mEq/L (05/06/15 2:48 PM) Potassium Lvl [3.5-5.1 mEq/L] 3.5 mEq/L (05/06/15 2:48 PM) Chloride Lvl [95-109 mEq/L] 105 mEq/L (05/06/15 2:48 PM) CO2 [24-32 mEq/L] 25 mEq/L (05/06/15 2:48 PM) AGAP [10.0-20.0 mEq/L] 14.5 mEq/L (05/06/15 2:48 PM) CHEM PANEL Most recent to oldest [Reference Range]: 1 Creatinine Lvl [0.5-1.4 mg/dL] 1.0 mg/dL (05/06/15 2:48 PM) eGFR 62 mL/min/1.73m2 1 *NA* (05/06/15 2:48 PM) BUN [7-22 mg/dL] 17 mg/dL (05/06/15 2:48 PM) Glucose Lvl [70-99 mg/dL] 94 mg/dL (05/06/15 2:48 PM) Calcium Lvl [8.5-10.5 mg/dL] 9.3 mg/dL (05/06/15 2:48 PM) 1Result Comment: The eGFR is calculated using the CKD-EPI formula. In most young , healthy individualsthe eGFR will be >90 mL/min/1.73m2. The eGFR declines with age. An eGFR of 60-89 may be normal in some populations, particularly the elderly, for whom the CKD-EPI formula has not been extensively validated. Use of the eGFR is not recommended in the following populations: Individuals with unstable creatinine concentrations, including patients and those with serious co-morbid conditions. Patients with extremes in muscle mass or diet. The data above are obtained from the National Kidney Disease Education Program ( NKDEP) which additionally recommends that when the eGFR is used in patients with extremes of body mass index for purposesof drug dosing, the eGFR should be multiplied by the estimated BMI.HEMATOLOGY Most recent to oldest [Reference Range]: 1 WBC [3.7-10.4 K/CMM] 5.4 K/CMM (05/06/15 2:48 PM) RBC [4.20-5.40 M/CMM] 4.51 M/CMM (05/06/15 2:48 PM) Hgb [12.0-16.0 g/dL] 13.2 g/dL (05/06/15 2:48 PM) Hct [36.0-48.0 %] 38.8 % (05/06/15 2:48 PM) MCV [80.0-98.0 fL] 86.0 fL (05/06/15 2:48 PM) MCH [27.0-31.0 pg] 29.3 pg (05/06/15 2:48 PM) MCHC [32.0-36.0 g/dL] 34.0 g/dL (05/06/15 2:48 PM) RDW [11.5-14.5 %] 13.7 % (05/06/15 2:48 PM) Platelet [133-450 K/CMM] 260 K/CMM (05/06/15 2:48 PM) MPV [7.4-10.4 fL] 7.6 fL (05/06/15 2:48 PM) Segs [45.0-75.0 %] 55.1 % (05/06/15 2:48 PM) Lymphocytes [20.0-40.0 %] 31.9 % (05/06/15 2:48 PM) Monocytes [2.0-12.0 %] 9.0 % (05/06/15 2:48 PM) Eosinophils [0.0-4.0 %] 3.3 % (05/06/15 2:48 PM) Basophils [0.0-1.0 %] 0.7 % (05/06/15 2:48 PM) Segs-Bands # [1.5-8.1 K/CMM] 2.9 K/CMM (05/06/15 2:48 PM) Lymphocytes # [1.0-5.5 K/CMM] 1.7 K/CMM (05/06/15 2:48 PM) Monocytes # [0.0-0.8 K/CMM] 0.5 K/CMM (05/06/15 2:48 PM) Eosinophils # [0.0-0.5 K/CMM] 0.2 K/CMM (05/06/15 2:48 PM) Basophils # [0.0-0.2 K/CMM] 0.0 K/CMM (05/06/15 2:48 PM) Immunizations No data available for this section Procedures Procedure Date Related Diagnosis Body Site Operation1 09/26/94 Breast biopsy and related procedures 09/26/92 1right foot surgery Social History Social History Type Response Substance Abuse Use: None. Exercise Self assessment: Good condition. Exercise type: Walking. Employment/School Status: Employed. Alcohol Current, Type Wine. Frequency: 1-2 times per week. Previous treatment: None. Alcohol use interferes with work or home: No. Drinks more than intended: No. Others hurt by drinking: No. Ready to change: No. Household alcohol concerns: No. Smoking Status Never smoker; Exposure to Tobacco Smoke None; Cigarette Smoking Last 365 Days No; Reg Smoking Cessation Counseling No Assessment and Plan No data available for this section
--- OUTSIDE RECORDS SUMMARY | 2018-11-18 23:25 | XMS REPORT | Continuity of Care Document ---
:1955 Author Organization [facility] Care Team Providers Name Role Phone MD Iva, [place] Unavailable Unavailable Insurance Providers Payer name Policy type / Coverage Policy ID Covered constitution party ID Policy [place] type [place]) [place] Encounters Encounter Performer Location Date Office Visit [place] Enrique MD [facility] January 28, 2015 Internal Medicine Allergies, Adverse Reactions, Alerts Type Substance Reaction Status Drug allergy SULFA Active Problems Problem Effective Dates Problem Status HYPERTENSION Active HYPOTHYROIDISM Active HYPERLIPIDEMIA Active ROUTINE GYNECOLOGICAL EXAMINATION Mar 21, 2012 Inactive ARTHRITIS May 01, 2013 Active WELL WOMAN EXAM Jun 20, 2013 Inactive HALLUX VALGUS, ACQUIRED Nov 07, 2013 Active HAMMER TOE, ACQUIRED Nov 07, 2013 Active ONYCHOMYCOSIS Nov 07, 2013 Inactive CHEST PAIN, ATYPICAL Apr 15, 2014 Inactive AFTERCARE, LONG-TERM USE, MEDICATIONS NEC Jul 23, 2014 Active OSTEOPENIA January 28, 2015 Active Procedures Date Description Comments Mar [...] January 28, 2015 smoking status Never smoker Medications Medication [...] ug/dl 5.1-11.1 2013 total Jul 16, thyroid TSH 2.68 uIU/mL 0.34-5.60 2014 stimulating hormone, serum Dec 16, vaginal Pap smear PAP SMEAR Normal null 2010 results Jun 20, vaginal Pap smear PAP SMEAR done null 2013 results
--- OUTSIDE RECORDS SUMMARY | 2018-11-18 23:25 | XMS REPORT | Continuity of Care Document ---
:1955 Author Organization [facility] Care Team Providers Name Role Phone MD Javi, Martin Unavailable Unavailable Insurance Providers Payer name Policy type / Coverage Policy ID Covered green party ID Policy [place] type [place]) [place] Encounters Encounter Performer Location Date Lab Report Martin Caldwell MD [facility] May 01, 2015 Gastroenterology Allergies, [...] 2014January 28, sodium, serum SODIUM 138 mmol/L [phone] January 28, potassium, serum POTASSIUM 4.2 mmol/L [...]
--- OUTSIDE RECORDS SUMMARY | 2018-11-18 23:25 | XMS REPORT | Continuity of Care Document ---
:1955 Author Organization [facility] Care Team Providers Name Role Phone MD Iva, [place] Unavailable Unavailable Insurance Providers Payer name Policy type / Coverage Policy ID Covered constitution party ID Policy [place] type [place]) [place] Encounters Encounter Performer Location Date Lab Report [place] Enrique MD [facility] January 28, 2015 Internal Medicine Allergies, Adverse [...] 2013Jul 16, HDL cholesterol, HDL 51 mg/dl -2013 serum Jul 16, LDL cholesterol, LDL 140 mg/dl 0-130 High 2013 serum Jul 16, creatinine, serum CREATININE 0.88 mg/dL 0.46-1.20 2013Jul 16, thyroxine, serum, T4, TOTAL 10.8 ug/dl 5.1-11.1 2013 total Jul 16, thyroid stimulating TSH 2.68 uIU/mL 0.34-5.60 2013 hormone, serum January 28, cholesterol, serum CHOLESTEROL 215 mg/dl 120-200 High 2014January 28, HDL cholesterol, HDL 55 mg/dl 31-79 2014 serum January 28, LDL cholesterol, LDL 133 mg/dl 0-130 High 2014January 28, sodium, serum SODIUM 138 mmol/L [phone] January 28, potassium, serum POTASSIUM 4.2 mmol/L 3.3-5.0 2014January 28, albumin, serum ALBUMIN 4.4 g/dL 3.5-5.0 2014January 28, alkaline phosphatase, ALK PHOS 65 U/L 26-102 2014 serum January 28, aspartate SGOT (AST) 29 U/L 10-42 2014 aminotransferase (SGOT), serum January 28, alanine SGPT (ALT) 58 U/L 11-43 High 2014 aminotransferase (SGPT), serum January 28, thyroxine, serum, T4, TOTAL 10.7 ug/dl 5.1-11.1 2014 total January 28, thyroid stimulating TSH 2.75 uIU/mL 0.34-5.60 2015 hormone, serum Dec 16, vaginal Pap smear PAP SMEAR Normal null 2010 results Jun 20, vaginal Pap smear PAP SMEAR done null 2013 results
--- OUTSIDE RECORDS SUMMARY | 2018-11-18 23:25 | XMS REPORT | Continuity of Care Document ---
:1955 Author Organization [facility] Care Team Providers Name Role Phone MD Iva, [place] Unavailable Unavailable Insurance Providers Payer name Policy type / Coverage Policy ID Covered libertarian ID Policy [place] type [place] Encounters Encounter Performer Location Date Lab Report [place] Enrique MD [facility] [place] Jul 16, 2014 Internal Medicine Allergies, Adverse Reactions, Alerts [...] vaginal Pap smear PAP SMEAR done null 2012 results
--- OUTSIDE RECORDS SUMMARY | 2018-11-18 23:25 | XMS REPORT | Continuity of Care Document ---
:1955 Author Organization [facility] Care Team Providers Name Role Phone MD Iva, [place] Unavailable Unavailable Insurance Providers Payer name Policy type / Coverage Policy ID Covered green party ID Policy [place] type [place] Encounters Encounter Performer Location Date Office Visit [place] Enrique MD [facility] [place] Jul 23, 2014 Internal Medicine Allergies, Adverse Reactions, Alerts [...] CHEST PAIN, ATYPICAL Apr 15, 2014 Active AFTERCARE, LONG-TERM USE, MEDICATIONS NEC Jul 23, 2014 Active Procedures Date Description Comments Mar [...] Jul 23, 2014 smoking status Never smoker Medications Medication [...] - 8462-4 BP DIASTOLIC 80 mm Hg Results Date Description Test Name [...] Jul 16, thyroid TSH 2.68 uIU/mL 0.34-5.60 2013 stimulating hormone, serum Dec 16, vaginal Pap smear PAP SMEAR Normal null 2010 results Jun 20, vaginal Pap smear PAP SMEAR done null 2012 results
--- OUTSIDE RECORDS SUMMARY | 2018-11-18 23:26 | XMS REPORT | Summary of Care ---
:1955 Author Organization [facility] [place] Address [address] [place] [address]- Encounter HQ [employer]([facility]) [id number] Date(s): 09/14/17 - 09/15/17 [facility] [place] [id number] [place] [address]- [phone] Vital Signs No data available for this section Problem List Condition Effective Dates Status Health Status Informant Acute diarrhea(Confirmed) Active Arthritis1 05/01/13 Active Asthma(Confirmed) Resolved Ongoing use of possibly toxic Active medication(Confirmed) Benign tumor of breast(Confirmed) Resolved Family history of cancer of colon2 05/01/15 Active FHx: breast cancer(Confirmed) Active FH: ovarian cancer(Confirmed) Active History of acute Active pancreatitis(Confirmed) Histoplasmosis(Confirmed) Resolved Hyperlipidemia3 Active Hypertension(Confirmed) Active Hypothyroidism(Confirmed)4 Active Obesity(Confirmed) Active Osteopenia5, 6 01/28/15 Active Fatty liver(Confirmed) Active 1Data migrated from [employer] on 02/22/15.2Data migrated from [employer] on 05/17/15.3Data migrated from [employer] on 02/22/15.4Data migrated from [employer] on 02/22/15.5Data migrated from [employer] on 05/17/15.6Data migrated from [employer] on 04/02/15. Allergies, Adverse Reactions, Alerts Substance Reaction Severity Status sulfa drugs1 rash Active 1Data migrated from [employer] on 04/24/15. Originally documented as SULFA. Medications telmisartan 80 mg oral tablet 80 mg=1 tab, PO, Daily, # 90 tab, 3 Refill(s), Pharmacy: [facility] Start Date: 09/14/17 Status: Ordered Results No data available for this section Immunizations No data available for this section [...]
--- OUTSIDE RECORDS SUMMARY | 2018-11-18 23:26 | XMS REPORT | Summary of Care ---
:1955 Author Organization [facility] Outpatient Imaging [place] Address [id number] [place] [address]- Encounter HQ Encntr_alitawana(FIN) [id number] Date(s): 11/07/15 - 11/07/15 [facility] Outpatient Imaging [place] [address]- [facility] Discharge Disposition: Home Attending Physician: Suzy Crowe MD Vital Signs No data available for this section Problem List Condition Effective Dates Status Health Status Informant Acquired hallux valgus1 11/07/13 Active Acute pancreatitis(Confirmed) Active Aftercare2 07/23/14 Resolved Arthritis3 05/01/13 Active Asthma(Confirmed) Resolved Atypical chest pain4 04/15/14 Active Benign tumor of breast(Confirmed) Resolved Family history of cancer of colon5 05/01/15 Active FHx: breast cancer(Confirmed) Active FH: ovarian cancer(Confirmed) Active Hammer toe6 11/07/13 Active Heartburn(Confirmed) Active Histoplasmosis(Confirmed) Resolved Hyperlipidemia7 Active Hypertension(Confirmed) Active Hypertensive episode8 Resolved Hypothyroid(Confirmed) < 05/06/15 Resolved Hypothyroidism9 Active Well woman exam with routine Active gynecological exam(Confirmed) Obesity(Confirmed) Active [id number], 11 01/28/15 Active Screening for malignant neoplasm of 05/01/15 Active colon12 Vertigo(Confirmed) Resolved 1Data migrated from [employer] on 02/22/15.2Data migrated from [employer] on 02/22/15.3Data migrated from [employer] on 02/22/15.4Data migrated from [employer] on 02/22/15.5Data migrated from [employer] on 05/17/15.6Data migrated from [employer] on 02/22/15.7Data migrated from [employer] on 02/22.8Data migrated from [employer] on 02/22/15.9Data migrated from [employer] on 02/22/15.10Data migrated from [employer] on 05/17/15.11Data migrated from [employer] on 04/02/15.12Data migrated from [employer] on 05/17. Allergies, Adverse Reactions, Alerts Substance Reaction Severity Status sulfa drugs1 rash Active 1Data migrated from [employer] on 04/24/15. Originally documented as SULFA. Medications No data available for this section Results No data available for this section [...]
--- OUTSIDE RECORDS SUMMARY | 2018-11-18 23:26 | XMS REPORT | Summary of Care ---
:1955 Author Organization [facility] Internal Medicine [place] Address [address] [place] [address]- Encounter HQ Nahomy_tay(FIN) [id number] Date(s): 08/17/17 - 08/17/17 [facility] Internal Medicine [place] [address] [place] [address]- [phone] Discharge Disposition: Home or Self Care Attending Physician: Montana Enrique MD Vital Signs Most recent to oldest [Reference Range]: 1 Height 162.56 cm (08/17/17 2:51 PM) Temperature Oral [96.4-99.1 DegF] 98.7 DegF (08/17/17 2:51 PM) Blood Pressure [90-140/60-90 mmHg] 113/69 mmHg (08/17/17 2:51 PM) Peripheral Pulse Rate [60-100 bpm] 65 bpm (08/17/17 2:51 PM) Weight 91.818 kg (08/17/17 2:51 PM) Body Mass Index 34.75 m2 (08/17/17 2:51 PM) Problem List Condition Effective Dates Status [...] Active Fatty liver(Confirmed) Active 1Data migrated from [employer] on 02/22/15.2Data migrated from [employer] on 05/17/15.3Data migrated from [employer] on 02/22/15.4Data migrated from [employer] on 02/22/15.5Data migrated from [employer] on 05/17/15.6Data migrated from [employer] on 04/02/15. Allergies, Adverse Reactions, Alerts Substance Reaction Severity Status sulfa drugs1 rash Active 1Data migrated from [employer] on 04/24/15. Originally documented as SULFA. Medications No Known Medications Results No data available for this section [...]
--- OUTSIDE RECORDS SUMMARY | 2018-11-18 23:26 | XMS REPORT | Summary of Care ---
:1955 Author Organization [facility] Internal Medicine [place] Address [address] [place] [address]- Encounter HQ Nahomy_tay(FIN) [id number] Date(s): 02/15/18 - 02/15/18 [facility] Internal Medicine [place] [address] [place] [address] [phone] Discharge Disposition: Home or Self Care Attending Physician: Montana Enrique MD Vital Signs Most recent to oldest [Reference Range]: 1 Height 162.56 cm (02/15/18 3:26 PM) Temperature Oral [96.4-99.1 DegF] 98.8 DegF (02/15/18 3:26 PM) Blood Pressure [90-140/60-90 mmHg] 129/78 mmHg (02/15/18 3:26 PM) Peripheral Pulse Rate [60-100 bpm] 66 bpm (02/15/18 3:26 PM) Weight 92.273 kg (02/15/18 3:26 PM) Body Mass Index 34.92 m2 (02/15/18 3:26 PM) Problem List Condition Effective Dates Status Health Status Informant Acute diarrhea(Confirmed) Active Arthritis1 05/01/13 Active Asthma(Confirmed) Resolved Ongoing use of possibly toxic Active medication(Confirmed) Benign tumor of breast(Confirmed) Resolved Family history of cancer of colon2 05/01/15 Active FHx: breast cancer(Confirmed) Active FH: ovarian cancer(Confirmed) Active History of acute Active pancreatitis(Confirmed) Histoplasmosis(Confirmed) Resolved Hyperlipidemia(Confirmed)3 Active Hypertension(Confirmed) Active Hypothyroidism(Confirmed)4 Active Obesity(Confirmed) Active Osteopenia5, 6 01/28/15 Active Fatty liver(Confirmed) Active 1Data migrated from [employer] on 02/22/15.2Data migrated from [employer] on 05/17/15.3Data migrated from [employer] on 02/22/15.4Data migrated from [employer] on 02/22/15.5Data migrated from [employer] on 05/17/15.6Data migrated from [employer] on 04/02/15. Allergies, Adverse Reactions, Alerts Substance Reaction Severity Status sulfa drugs1 rash Active 1Data migrated from [employer] on 04/24/15. Originally documented as SULFA. Medications phentermine 37.5 mg oral capsule 37.5 mg=1 cap, PO, Daily, # 30 tab, 0 Refill(s) Start Date: 02/15/18 Stop Date: 03/17/18 Status: Ordered Results No data available for this section Immunizations No data available for this section Procedures Procedure Date Related Diagnosis Body Site Status Mammogram 06/26/17 Completed Colonoscopy 04/26/16 Completed Operation1 09/26/94 Completed Breast biopsy and related procedures 09/26/92 Completed 1right foot surgery Social History Social History [...] Days No; Reg Smoking Cessation Counseling No entered on: 02/15/18 Assessment and Plan No data available for this section
--- OUTSIDE RECORDS SUMMARY | 2018-11-18 23:26 | XMS REPORT | Summary of Care ---
:1955 Author Organization [facility] Outpatient Imaging [place] Address [address] [place] [address]- Encounter HQ Encntr_alias(FIN) [id number] Date(s): 04/29/17 - 04/29/17 [facility] Outpatient Imaging [address] [address]- Discharge Disposition: Home or Self Care Attending Physician: Suzy Crowe MD Vital Signs [...] pancreatitis(Confirmed) Histoplasmosis(Confirmed) Resolved Hyperlipidemia3 Active Hypertension(Confirmed) Active Hypothyroidism4 Active Obesity(Confirmed) Active Osteopenia5, 6 01/28/15 Active [...]
--- OUTSIDE RECORDS SUMMARY | 2018-11-18 23:26 | XMS REPORT | Summary of Care ---
:1955 Author Organization [facility] dry starch operator [place] Address [address] [address] Encounter HQ Encntr_alias(FIN) [id number] Date(s): 04/24/18 - 04/24/18 [facility] dry starch operator [place] [address] [address] [phone] Attending Physician: Suzy Crowe MD Vital Signs [...] Procedure Date Related Diagnosis Body Site Status Mammogram1 04/26/18 Completed Mammogram 06/26/17 Completed Colonoscopy 04/26/16 Completed Operation2 09/26/94 Completed Breast biopsy and related procedures 09/26/92 Completed 1DrJose Valera referred her for the [id number] foot surgery Social History Social History Type [...] Reg Smoking Cessation Counseling No entered on: 07/19/18 Assessment and Plan No data available for this section
--- OUTSIDE RECORDS SUMMARY | 2018-11-18 23:26 | XMS REPORT | Summary of Care ---
:1955 Author Organization [facility] speech language pathologist [place] Address [address] [address] Encounter HQ Encntr_alias(FIN) [id number] Date(s): 04/24/18 - 04/24/18 [facility] speech language pathologist [place] [address] [address] [phone] Attending Physician: Suzy Crowe MD Vital Signs [...]
--- OUTSIDE RECORDS SUMMARY | 2018-11-18 23:26 | XMS REPORT | Summary of Care ---
:1955 Author Organization [facility] Address [address] [place], [place] [address]- Encounter HQ Estefani([facility]) [id number] Date(s): 06/12/15 - 06/14/15 [facility] [address] [place] [address]- Discharge Disposition: Home Attending Physician: Layton Mendoza MD Admitting Physician: Layton Mendoza MD Vital Signs Most recent to oldest [Reference Range]: 1 2 3 Height 165.1 cm (06/12/15 2:53 PM) Most recent to oldest [Reference Range]: 1 2 3 Current Weight 89.545 kg (06/12/15 3:01 PM) Most recent to oldest 1 2 3 [Reference Range]: Temperature Oral [96.4-99.1 98.6 DegF 98.0 DegF 97.9 DegF DegF] (06/14/15 6:55 AM) (06/14/15 3:55 AM) (06/14/15 12:17 AM) Most recent to oldest 1 2 3 [Reference Range]: Blood Pressure [90-140/60-90 98/64 mmHg 107/71 mmHg 99/62 mmHg mmHg] (06/14/15 6:55 AM) (06/14/15 3:55 AM) (06/14/15 12:17 AM) Most recent to oldest 1 2 3 [Reference Range]: Respiratory Rate [14-20 BRMIN] 15 BRMIN 16 BRMIN 20 BRMIN (06/14/15 6:55 AM) (06/14/15 3:55 AM) (06/14/15 12:17 AM) Most recent to oldest 1 2 3 [Reference Range]: Peripheral Pulse Rate [60-100 58 bpm 77 bpm 57 bpm bpm] *LOW* (06/14/15 3:55 AM) *LOW* (06/14/15 6:55 AM) (06/14/15 12:17 AM) Most recent to oldest [Reference Range]: 1 2 3 Weight 88.636 kg 88.636 kg (06/12/15 2:53 PM) (06/12/15 10:58 AM) Most recent to oldest [Reference Range]: 1 2 3 Body Mass Index 32.52 m2 (06/12/15 2:53 PM) Problem List Condition Effective Dates Status Health Status Informant Acquired hallux valgus1 11/07/13 Active Aftercare2 07/23/14 Resolved Arthritis3 05/01/13 Active Asthma(Confirmed) Resolved Atypical chest pain4 04/15/14 Active Family history of cancer of colon5 05/01/15 Active Hammer toe6 11/07/13 Active Heartburn(Confirmed) Active Hyperlipidemia7 Active Hypertension(Confirmed) Active Hypertensive episode8 Resolved Hypothyroid(Confirmed) < 05/06/15 Resolved Hypothyroidism9 Active Obesity(Confirmed) Active Wkcvrscebu91, 11 01/28/15 Active Screening for malignant neoplasm of 05/01/15 Active colon12 1Data migrated from [employer] on 02/22/15.2Data [...] on 04/24/15. Originally documented as SULFA. Medications azilsartan-chlorthalidone 40 mg-12.5 mg oral tablet 1 tab, Route: PO, Dosing Weight 88.636, kg, Daily, Start date: 06/14/15 9:00:00 , Duration: 30 day, Stop date: 07/13/15 9:00:00 Start Date: 06/14/15 Stop Date: 06/13/15 Status: DiscontinuedDextrose 5% with 0.45% NaCl IV 1,000 mL 1,000 mL, Rate: 125 ml/hr, Infuse over: 8 hr, Route: IV, Dosing Weight 88.636 kg , Total Volume: 1,000, Start date: 06/12/15 13:07:00, Stop date: 07/12/15 13:06: 00 Start Date: 06/12/15 Stop Date: 06/14/15 Status: DiscontinuedDiovan 160 mg, 1 tab, Route: PO, Drug form: TAB, Daily, Start date: 06/14/15 9:00:00, Duration: 30 day, Stop date: 07/13/15 9:00:00 Notes: Same as Diovan Start Date: 06/14/15 Stop Date: 06/14/15 Status: Discontinuedenoxaparin 40 mg, 0.4 mL, Route: SUB-Q, Drug form: INJ, [id number], Dosing Weight 88.636, kg , For CrCl >=30 mL/min, Start date: 06/12/15 14:00:00, Duration: 30 day, Stop date: 07/11/15 14:00:00 Notes: (Same as: Lovenox) Start Date: 06/12/15 Stop Date: 06/14/15 Status: Discontinuedhydrochlorothiazide 25 mg oral tablet 12.5 mg, 0.5 tab, Route: PO, Drug form: TAB, Daily, Start date: 06/14/15 9:00:00 , Duration: 30 day, Stop date: 07/13/15 9:00:00 Notes: (Same as: Hydrodiuril) With food. Start Date: 06/14/15 Stop Date: 06/14/15 Status: DiscontinuedMicardis HCT 80 mg-12.5 mg oral tablet 1 tab, PO, Daily, # 30 tab, 0 Refill(s) Start Date: 06/14/15 Stop Date: 07/14/15 Status: Orderedmorphine Sulfate 4 mg, 2 mL, Route: IVP, Drug form: INJ, Q4H, Dosing Weight 88.636, kg, PRN Pain Score 6-10, Priority: Routine, Start date: 06/12/15 13:10:00, Duration: 30 day, Stop date: 07/12/15 13:09:00 Notes: (Same as:MORPhine Sulfate) Start Date: 06/12/15 Stop Date: 06/14/15 Status: Discontinuedmorphine Sulfate 2 mg, 1 mL, Route: IVP, Drug form: INJ, Q4H, Dosing Weight 88.636, kg, PRN Pain Score 7-10, Start date: 06/12/15 13:07:00, Duration: 30 day, Stop date: 13:06:00 Notes: (Same as:MORPhine Sulfate) Start Date: 06/12/15 Stop Date: 06/14/15 Status: Discontinuedmorphine Sulfate 4 mg, 2 mL, Route: IVP, Drug form: INJ, ONCE, Dosing Weight 89.568, kg, Priority : STAT, Start date: 06/12/15 10:56:00, Stop date: 06/12/15 10:56:00 Notes: (Same as:MORPhine Sulfate) Start Date: 06/12/15 Stop Date: 06/12/15 Status: CompletedMotrin 200 mg, 1 tab, Route: PO, Drug form: TAB, Q6H, Dosing Weight 88.636, kg, PRN Headache 6-10, Start date: 06/13/15 11:20:00, Duration: 30 day, Stop date: 07/13 11:19:00 Notes: (Same as: Advil) Give with food. Start Date: 06/13/15 Stop Date: 06/14/15 Status: Discontinuedondansetron 4 mg, 2 mL, Route: IVP, Drug form: INJ, Q6H, Dosing Weight 88.636, kg, PRN Nausea & Vomiting, Start date: 06/12/15 13:07:00, Duration: 30 day, Stop date: 07/12/15 13:06:00 Notes: (Same as: Brittny) MEDICATION WASTE Product Size: 4 mgProduct Wasted: ___ mg Start Date: 06/12/15 Stop Date: 06/14/15 Status: Discontinuedondansetron 4 mg, 2 mL, Route: IVP, Drug form: INJ, ONCE, Dosing Weight 89.568, kg, Priority : STAT, Start date: 06/12/15 10:56:00, Stop date: 06/12/15 10:56:00 Notes: (Same as: Zofran) MEDICATION WASTE Product Size: 4 mgProduct Wasted: ___ mg Start Date: 06/12/15 Stop Date: 06/12/15 Status: CompletedSaline Flush 0.9% 10 ml, Route: IVP, Drug Form: INJ, Dosing Weight 88.636, kg, PRN, PRN Line Flush , Start date: 06/12/15 13:07:00, Duration: 30 day, Stop date: 07/12/15 13:06:00 Notes: (Same as: BD Posiflush) Start Date: 06/12/15 Stop Date: 06/14/15 Status: DiscontinuedSaline Flush 0.9% 10 mL, Route: IVP, Drug Form: INJ, Dosing Weight 89.568, kg, PRN, PRN Line Flush , Start date: 06/12/15 10:56:00, Duration: 30 day, Stop date: 07/12/15 10:55:00 Notes: (Same as: BD Posiflush) Start Date: 06/12/15 Stop Date: 06/14/15 Status: DiscontinuedSodium Chloride 0.9% (Bolus) IV 1,000 mL, 1000 ml/hr, Infuse Over: 1 hr, Route: IV, 1,000, Drug form: INJ, ONCE , Priority: STAT, Dosing Weight 89.568 kg, Start date: 06/12/15 10:56:00, Duration: 1 doses or times, Stop date: 06/12/15 10:56:00 Start Date: 06/12/15 Stop Date: 06/12/15 Status: CompletedSynthroid 125 microgram, 1 tab, Route: PO, Drug form: TAB, [id number], Dosing Weight 88.636, kg, Start date: 06/13/15 9:42:00, Duration: 30 day, Stop date: 07/13/15 6:30:00 Notes: Take 1 hour before or 2 hours after meal; Enteral feeds may interefere with the absorption ofthis medication. (Same as:Levothroid) Start Date: 06/13/15 Stop Date: 06/14/15 Status: DiscontinuedSynthroid 125 mcg (0.125 mg) oral tablet 125 microgram=1 tab, PO, Daily, # 30 tab, 0 Refill(s) Start Date: 06/14/15 Stop Date: 07/14/15 Status: OrderedTums 500 mg, 1 tab, Route: CHEW, Drug form: CHEWTAB, Daily, Dosing Weight 88.636, kg , PRN as needed for indigestion, Start date: 06/13/15 9:25:00, Duration: 30 day , Stop date: 07/13/15 9:24:00 Notes: (Same As: Tums)Calcium Carbonate 500 pu=668 mg elemental calcium Dose=_ mg calcium carbonate ( mg elemental calcium) Start Date: 06/13/15 Stop Date: 06/14/15 Status: DiscontinuedTums =1 tab, CHEW, Daily, PRN acid reflux, 0 Refill(s) Start Date: 06/12/15 Status: OrderedZofran 4 mg, 2 mL, Route: IVP, Drug form: INJ, Q6H, Dosing Weight 88.636, kg, PRN as needed for nausea/vomiting, Priority: Routine, Start date: 06/12/15 13:10:00, Duration: 30 day, Stop date: 07/12/15 13:09:00 Notes: (Same as: Zofran) MEDICATION WASTE Product Size: 4 mgProduct Wasted: ___ mg Start Date: 06/12/15 Stop Date: 06/14/15 Status: Discontinued Results ELECTROLYTES Most recent to oldest 1 2 3 [Reference Range]: Sodium Lvl [135-145 mEq/L] 143 mEq/L 143 mEq/L 141 mEq/L (06/14/15 5:07 AM) (06/13/15 5:50 AM) (06/12/15 12:12 PM) Potassium Lvl [3.5-5.1 3.7 mEq/L 3.7 mEq/L 3.6 mEq/L mEq/L] (06/14/15 5:07 AM) (06/13/15 5:50 AM) (06/12/15 12:12 PM) Chloride Lvl [95-109 mEq/L] 110 mEq/L 108 mEq/L 103 mEq/L *HI* (06/13/15 5:50 AM) (06/12/15 12:12 PM) (06/14/15 5:07 AM) CO2 [24-32 mEq/L] 28 mEq/L 31 mEq/L 31 mEq/L (06/14/15 5:07 AM) (06/13/15 5:50 AM) (06/12/15 12:12 PM) AGAP [10.0-20.0 mEq/L] 8.7 mEq/L 7.7 mEq/L 10.6 mEq/L *LOW* *LOW* (06/12/15 12:12 PM) (06/14/15 5:07 AM) (06/13/15 5:50 AM) CHEM PANEL Most recent to oldest 1 2 3 [Reference Range]: Creatinine Lvl [0.5-1.4 0.9 mg/dL 0.9 mg/dL 0.9 mg/dL mg/dL] (06/14/15 5:07 AM) (06/13/15 5:50 AM) (06/12/15 12:12 PM) eGFR 70 mL/min/1.73m2 1 70 mL/min/1.73m2 2 70 mL/min/1.73m2 3 *NA* *NA* *NA* (06/14/15 5:07 AM) (06/13/15 5:50 AM) (06/12/15 12:12 PM) BUN [7-22 mg/dL] 7 mg/dL 9 mg/dL 11 mg/dL (06/14/15 5:07 AM) (06/13/15 5:50 AM) (06/12/15 12:12 PM) B/C Ratio [6-25] 12 (06/12/15 12:12 PM) Glucose Lvl [70-99 mg/dL] 114 mg/dL 121 mg/dL 97 mg/dL *HI* *HI* (06/12/15 12:12 PM) (06/14/15 5:07 AM) (06/13/15 5:50 AM) Total Protein [6.4-8.4 7.8 g/dL g/dL] (06/12/15 12:12 PM) Albumin Lvl [3.5-5.0 g/dL] 4.0 g/dL (06/12/15 12:12 PM) Globulin [2.0-4.0 g/dL] 3.8 g/dL (06/12/15 12:12 PM) A/G Ratio [0.7-1.6] 1.1 (06/12/15 12:12 PM) Calcium Lvl [8.5-10.5 8.2 mg/dL 8.1 mg/dL 9.5 mg/dL mg/dL] *LOW* *LOW* (06/12/15 12:12 PM) (06/14/15 5:07 AM) (06/13/15 5:50 AM) ALT [0-65 unit/L] 502 unit/L *HI* (06/12/15 12:12 PM) AST [0-37 unit/L] 308 unit/L *HI* (06/12/15 12:12 PM) Alk Phos [39-136 unit/L] 119 unit/L (06/12/15 12:12 PM) Bili Total [0.2-1.3 mg/dL] 2.1 mg/dL *HI* (06/12/15 12:12 PM) Amylase Lvl [25-115 unit/L] 569 unit/L *HI* (06/12/15 12:12 PM) Lipase Lvl [73-393 unit/L] 888 unit/L 51551 unit/L *HI* *HI* (06/13/15 5:50 AM) (06/12/15 12:12 PM) 1Result Comment: The eGFR is calculated [...] eGFR should be multiplied by the estimated BMI.2Result Comment: The eGFR is calculated using the CKD-EPI formula. In most young, healthy individualsthe eGFR will be >90 mL/ min/1.73m2. The [...] eGFR should be multiplied by the estimated BMI.3Result Comment: The eGFR is calculated using the CKD-EPI formula. In most young, healthy individualsthe eGFR will be >90 mL/ min/1.73m2. The [...] eGFR should be multiplied by the estimated BMI.LIPIDS Most recent to oldest [Reference Range]: 1 2 3 CHD Risk [3.90-5.80] 3.48 *LOW* (06/13/15 5:50 AM) Chol [<=199 mg/dL] 153 mg/dL (06/13/15 5:50 AM) Trig [<=149 mg/dL] 173 mg/dL *HI* (06/13/15 5:50 AM) HDL [>=61 mg/dL] 44 mg/dL *LOW* (06/13/15 5:50 AM) LDL (Calculated) [<=99 mg/dL] 74 mg/dL (06/13/15 5:50 AM) VLDL 35 *NA* (06/13/15 5:50 AM) HEMATOLOGY Most recent to oldest 1 2 3 [Reference Range]: WBC [3.7-10.4 K/CMM] 4.7 K/CMM 4.3 K/CMM 9.2 K/CMM (06/14/15 5:07 AM) (06/13/15 5:50 AM) (06/12/15 12:12 PM) RBC [4.20-5.40 M/CMM] 4.21 M/CMM 4.15 M/CMM 4.91 M/CMM (06/14/15 5:07 AM) *LOW* (06/12/15 12:12 PM) (06/13/15 5:50 AM) Hgb [12.0-16.0 g/dL] 12.2 g/dL 12.2 g/dL 14.1 g/dL (06/14/15 5:07 AM) (06/13/15 5:50 AM) (06/12/15 12:12 PM) Hct [36.0-48.0 %] 36.8 % 35.8 % 42.3 % (06/14/15 5:07 AM) *LOW* (06/12/15 12:12 PM) (06/13/15 5:50 AM) MCV [80.0-98.0 fL] 87.6 fL 86.2 fL 86.2 fL (06/14/15 5:07 AM) (06/13/15 5:50 AM) (06/12/15 12:12 PM) MCH [27.0-31.0 pg] 28.9 pg 29.3 pg 28.8 pg (06/14/15 5:07 AM) (06/13/15 5:50 AM) (06/12/15 12:12 PM) MCHC [32.0-36.0 g/dL] 33.0 g/dL 34.0 g/dL 33.4 g/dL (06/14/15 5:07 AM) (06/13/15 5:50 AM) (06/12/15 12:12 PM) RDW [11.5-14.5 %] 14.0 % 13.2 % 13.2 % (06/14/15 5:07 AM) (06/13/15 5:50 AM) (06/12/15 12:12 PM) Platelet [133-450 K/CMM] 205 K/CMM 209 K/CMM 260 K/CMM (06/14/15 5:07 AM) (06/13/15 5:50 AM) (06/12/15 12:12 PM) MPV [7.4-10.4 fL] 8.0 fL 7.5 fL 7.9 fL (06/14/15 5:07 AM) (06/13/15 5:50 AM) (06/12/15 12:12 PM) Segs [45.0-75.0 %] 48.4 % 54.5 % 80.1 % (06/14/15 5:07 AM) (06/13/15 5:50 AM) *HI* (06/12/15 12:12 PM) Lymphocytes [20.0-40.0 %] 36.4 % 31.0 % 12.3 % (06/14/15 5:07 AM) (06/13/15 5:50 AM) *LOW* (06/12/15 12:12 PM) Monocytes [2.0-12.0 %] 9.8 % 9.9 % 6.5 % (06/14/15 5:07 AM) (06/13/15 5:50 AM) (06/12/15 12:12 PM) Eosinophils [0.0-4.0 %] 5.0 % 4.0 % 0.7 % *HI* (06/13/15 5:50 AM) (06/12/15 12:12 PM) (06/14/15 5:07 AM) Basophils [0.0-1.0 %] 0.4 % 0.6 % 0.4 % (06/14/15 5:07 AM) (06/13/15 5:50 AM) (06/12/15 12:12 PM) Segs-Bands # [1.5-8.1 K/CMM] 2.3 K/CMM 2.3 K/CMM 7.4 K/CMM (06/14/15 5:07 AM) (06/13/15 5:50 AM) (06/12/15 12:12 PM) Lymphocytes # [1.0-5.5 1.7 K/CMM 1.3 K/CMM 1.1 K/CMM K/CMM] (06/14/15 5:07 AM) (06/13/15 5:50 AM) (06/12/15 12:12 PM) Monocytes # [0.0-0.8 K/CMM] 0.5 K/CMM 0.4 K/CMM 0.6 K/CMM (06/14/15 5:07 AM) (06/13/15 5:50 AM) (06/12/15 12:12 PM) Eosinophils # [0.0-0.5 0.2 K/CMM 0.2 K/CMM 0.1 K/CMM K/CMM] (06/14/15 5:07 AM) (06/13/15 5:50 AM) (06/12/15 12:12 PM) Basophils # [0.0-0.2 K/CMM] 0.0 K/CMM 0.0 K/CMM 0.0 K/CMM (06/14/15 5:07 AM) (06/13/15 5:50 AM) (06/12/15 12:12 PM) Plt Morph Normal (06/13/15 5:50 AM) Immunizations No data available for this section [...]
[2018-11-18] MEDS ORDERED: NA CHLORIDE 0.9% 500 ML ONE (23:46)
[2018-11-18] MEDS ORDERED: ONDANSETRON 4 MG/2 ML VIAL ONE (23:46)
[2018-11-18] MEDS ORDERED: MORPHINE 4 MG/ML SYR ONE (23:46)
[2018-11-19 00:03] LABS: Absolute Monocytes 0.9 K/uL (0.1-1.3); Absolute Neutrophil 9.2 K/uL (1.8-8.0); Basophils % 0.4 % (0-1.3); Eosinophils % 1.8 % (0-4.4); Hematocrit 42.5 % (36.0-45.0); Lymphocytes % 27.9 % (15.3-44.8); MPV 7.9 fL (7.6-11.3); Monocytes % 6.5 % (3.3-12.3); RBC Red Blood Cell Count 5.06 M/uL (3.86-4.86)
[2018-11-19 00:21] LABS: Albumin 3.8 g/dL (3.4-5.0); Bilirubin Direct 0.2 mg/dL (0-0.2); Bilirubin Total 0.5 mg/dL (0.2-1.0); Potassium 3.4 mmol/L (3.5-5.1); Protein, Total 7.2 g/dL (6.4-8.2)
[2018-11-19] MEDS ORDERED: NA CHLORIDE 0.9% 1,000 ML ONE (00:51)
[2018-11-19] MEDS ORDERED: ONDANSETRON 4 MG/2 ML VIAL ONE (00:54)
[2018-11-19] MEDS ORDERED: FENTANYL CITR 100 MCG/2 ML ONE (02:44)
[2018-11-19] MEDS ORDERED: CEFTRIAXONE/SWI 1gm 1 GM/10 ML SYR ONE (02:44)
[2018-11-19] MEDS ORDERED: METRONIDAZOLE 500mg IVPB 500 MG/100 ML BAG IV ONE (02:45)
--- NOTE | 2018-11-19 03:19 | EDPHYS ---
Physician Documentation [facility] Name: Amy Valdez Age: 63 yrs Sex: Female : 1955 Arrival Date: 11/18/2018 Time: 23:19 Bed 5 Private MD: ED Physician Steffen Hansen HPI: 11/18 23:42 This 63 yrs old Female presents to ER via Wheelchair with complaints of rn Abdominal Pain, Vomiting. 23:42 The patient presents to the emergency department with nausea, vomiting, abdominal pain. rn Onset: The symptoms/episode began/occurred today. Possible causes: unknown. Severity of symptoms: At their worst the symptoms were moderate in the emergency department the symptoms are unchanged. The patient has experienced a previous episode. Reports similar episode in past, told had pancreatitis, did not have gallbladder removed at the time, no clear reason for her pancreatitis, reports upper abd pain assoc with nausea/vomiting, radiates to back. No chest pain/sob. Just had pizza and 2 beers.. Historical: - Allergies: 23:35 Sulfa (Sulfonamide Antibiotics); tl2 - Home Meds: 23:35 Synthroid Oral [Active]; tl2 - PMHx: 23:35 Hypertension; Hypothyroidism; Pancreatitis; tl2 - Immunization history:: Adult Immunizations up to date. - Social history:: Smoking status: Patient/guardian denies using tobacco. - Ebola Screening: : No symptoms or risks identified at this time. - Family history:: not pertinent. - Hospitalizations: : No recent hospitalization is reported. ROS: 23:42 Constitutional: Negative for fever, chills, and weight loss, Eyes: Negative for injury, rn pain, redness, and discharge, Neck: Negative for injury, pain, and swelling, Cardiovascular: Negative for chest pain, palpitations, and edema, Respiratory: Negative for shortness of breath, cough, wheezing, and pleuritic chest pain, Abdomen/GI: + abd pain and vomiting MS/Extremity: Negative for injury and deformity, Skin: Negative for injury, rash, and discoloration, Neuro: Negative for headache, weakness, numbness, tingling, and seizure. Exam: 23:42 Constitutional: This is a well developed, well nourished patient who is awake, alert rn Head/Face: Normocephalic, atraumatic. Eyes: Pupils equal round and reactive to light, extra-ocular motions intact. Lids and lashes normal. Conjunctiva and sclera are non-icteric and not injected. Cornea within normal limits. Periorbital areas with no swelling, redness, or edema. ENT: MMM Respiratory: No increased work of breathing, no retractions or nasal flaring. Abdomen/GI: soft, mild epigastric tenderness, no rebound Skin: Warm, dry MS/ Extremity: Pulses equal, no cyanosis. Neurovascular intact. Full, normal range of motion. Equal circumference. Vital Signs: 23:35 BP 113 / 58; Pulse 87; Resp 18; Temp 98.2(O); Pulse Ox 97% on R/A; Weight 81.65 kg; tl2 Height 5 ft. 4 in. (162.56 cm); Pain 8/10; 23:53 BP 112 / 56; Pulse 62; Resp 18; Pulse Ox 97% on R/A; ea 11/19 00:00 BP 99 / 65; Pulse 57; Resp 18; Pulse Ox 89% ; ea 00:30 BP 99 / 65; Pulse 68; Resp 21; Pulse Ox 100% on 2 lpm NC; tl2 01:13 BP 99 / 60; Pulse 79; Resp 18; Pulse Ox 100% on 2 lpm NC; ea 01:53 BP 124 / 71; Pulse 88; Resp 18; Pulse Ox 100% on 2 lpm NC; tl2 02:53 BP 120 / 75; Pulse 86; Resp 18; Pulse Ox 100% on 2 lpm NC; ea 02:56 BP 120 / 75; Pulse 88; Resp 18; Pulse Ox 98% on 2 lpm NC; tl2 03:58 BP 118 / 74; Pulse 93; Resp 19; Pulse Ox 99% on 2 lpm NC; tl2 04:00 BP 121 / 72; Pulse 90; Resp 18; Pulse Ox 98% on 2 lpm NC; ea 05:36 BP 111 / 71; Pulse 88; Resp 20; Pulse Ox 95% on 2 lpm NC; ea 11/18 23:35 Body Mass Index 30.90 (81.65 kg, 162.56 cm) tl2 00:00 pt placed on O2 per NC at 2L ea MDM: 11/18 23:25 Patient medically screened. rn 11/19 03:13 Differential diagnosis: Nonspecific abd pain, pancreatitis, viral gastroenteritis, rn gastroenteritis. Data reviewed: vital signs, nurses notes, lab test result(s), radiologic studies, CT scan, and as a result, I will. Counseling: I had a detailed discussion with the patient and/or guardian regarding: the historical points, exam findings, and any diagnostic results supporting the discharge/admit diagnosis, lab results, radiology results, the need for further work-up and treatment in the hospital. Response to treatment: the patient's symptoms have mildly improved after treatment, and as a result, I will admit patient. Admission orders: after a detailed discussion of the patient's condition and case, the admit orders are written by me. 11/18 23:30 Order name: Basic Metabolic Panel rn 11/18 23:30 Order name: CBC with Diff rn 11/18 23:30 Order name: Hepatic Function rn 11/18 23:30 Order name: Lipase rn 11/19 00:04 Order name: CBC with Automated Diff; Complete Time: 00:36 EDMS 11/19 00:21 Order name: Basic Metabolic Panel; Complete Time: 00:36 EDIA 11/18 23:30 Order name: CT Abd/Pelvis - W/Contrast rn 11/19 00:21 Order name: Liver (Hepatic) Function; Complete Time: 00:36 EDMS 11/19 00:21 Order name: Lipase; Complete Time: 00:36 EDIA 11/18 23:30 Order name: IV Saline Lock; Complete Time: 00:01 rn 11/18 23:30 Order name: Labs collected and sent; Complete Time: 00:01 rn Administered Medications: 11/18 02:43 Drug: Flagyl 500 mg Volume: 100 ml; Route: IVPB; Rate: 200 ml/hr; Infused Over: 30 ea mins; Site: left antecubital; 11/19 03:50 Follow up: Response: No adverse reaction; IV Status: Completed infusion 11/18 23:38 Drug: NS 0.9% 500 ml Route: IV; Rate: bolus; Site: left antecubital; 11/19 00:30 Follow up: IV Status: Completed infusion; IV Intake: 500ml 11/18 23:55 Drug: Zofran 4 mg Route: IVP; Site: left antecubital; 11/19 00:30 Follow up: Response: No adverse reaction; Marked relief of symptoms 11/18 23:57 Drug: morphine 4 mg Route: IVP; Site: left antecubital; ea 11/19 00:25 Follow up: Response: No adverse reaction; Pain is decreased ea 00:35 Drug: Zofran 4 mg Route: IVP; Site: left antecubital; ea 01:00 Follow up: Response: No adverse reaction ea 00:40 Drug: NS 0.9% 1000 ml Route: IV; Rate: 1000 ml; Site: left antecubital; ea 05:41 Follow up: Response: No adverse reaction; IV Status: Completed infusion; IV Intake: ea 1000ml 02:33 CANCELLED (Duplicate Order): fentaNYL (PF) 25 mcg IVP once ea 02:40 Drug: Rocephin - (cefTRIAXone) 1 grams Route: IVPB; Infused Over: 30 mins; Site: left ea antecubital; 03:00 Follow up: IV Status: Completed infusion; IV Intake: 10ml ; Medication administered IVP ea per pharmacy protocol 03:30 Follow up: Response: No adverse reaction; IV Status: Completed infusion ea 02:40 Drug: fentaNYL (PF) 25 mcg Route: IVP; Site: left antecubital; ea 03:15 Follow up: Response: No adverse reaction; Pain is decreased ea 04:49 Drug: Phenergan 12.5 mg Route: IVP; Site: left antecubital; ea 05:43 Follow up: Response: No adverse reaction; Marked relief of symptoms ea Disposition: 11/19/18 03:18 Hospitalization ordered by Iggy Strauss for Inpatient Admission. Preliminary diagnosis is Acute pancreatitis. - Bed requested for Telemetry/MedSurg (Inpatient). - Status is Inpatient Admission. ea - Condition is Stable. - Problem is new. - Symptoms have improved. UTI on Admission? No Signatures: Dispatcher [employer] EDCarine Ardon RN RN kl Nieto, Roman, MD MD rn Knox, Taylor, RN RN tl2 Antunez, Elena, RN RN ea Corrections: (The following items were deleted from the chart) 02:33 02:33 fentaNYL (PF) 25 mcg IVP once ordered. ea ea 03:18 03:17 11/19/2018 03:17 Discharged to Home. Impression: Acute pancreatitis. Condition is rn Stable. Forms are Medication Reconciliation Form, Thank You Letter, Antibiotic Education, Prescription Opioid Use. Follow up: Private Physician; When: As needed; Reason: Recheck today's complaints, Re-evaluation by your physician. Problem is new. Symptoms have improved. rn 05:21 03:18 Hospitalization Ordered by Iggy Srtauss MD for Inpatient Admission. Preliminary kl diagnosis is Acute pancreatitis. Bed requested for Telemetry/MedSurg (Inpatient). Status is Inpatient Admission. Condition is Stable. Problem is new. Symptoms have improved. UTI on Admission? No. rn 05:55 05:21 11/19/2018 03:18 Hospitalization Ordered by Iggy Strauss MD for Inpatient ea Admission. Preliminary diagnosis is Acute pancreatitis. Bed requested for Telemetry/MedSurg (Inpatient). Status is Inpatient Admission. Condition is Stable. Problem is new. Symptoms have improved. UTI on Admission? No. kl
--- NOTE | 2018-11-19 03:19 | ER ---
Nurse's Notes [facility] Name: Amy Valdez Age: 63 yrs Sex: Female : 1955 Arrival Date: 11/18/2018 Time: 23:19 Bed 5 Private MD: Diagnosis: Acute pancreatitis Presentation: 11/18 23:32 Presenting complaint: Patient states: epigastric pain, nausea and vomiting started at tl2 2200 tonight. Pt had similar episode in 2015 with a pancreatitis attack. Transition of care: patient was not received from another setting of care. Onset of symptoms was November 18, 2018 at 22:00. Risk Assessment: Do you want to hurt yourself or someone else? Patient reports no desire to harm self or others. Initial Sepsis Screen: Does the patient meet any 2 criteria? No. Patient's initial sepsis screen is negative. Does the patient have a suspected source of infection? No. Patient's initial sepsis screen is negative. Care prior to arrival: None. 23:32 Method Of Arrival: Wheelchair tl2 23:32 Acuity: CLIVE 3 tl2 Triage Assessment: 23:35 General: Appears in no apparent distress. uncomfortable, Behavior is calm, cooperative, tl2 appropriate for age. Pain: Complains of pain in diaphragm and xyphoid area Pain radiates to back Pain currently is 8 out of 10 on a pain scale. Quality of pain is described as sharp, Pain began 2 hours ago. Is continuous. Neuro: Level of Consciousness is awake, alert, obeys commands, Oriented to person, place, time, situation. Cardiovascular: Denies chest pain. Respiratory: Airway is patent Respiratory effort is even, unlabored, Respiratory pattern is regular, symmetrical. GI: Abd is soft Abdomen is tender to palpation in epigastric area Reports upper abdominal pain, nausea, vomiting. : No signs and/or symptoms were reported regarding the genitourinary system. Derm: Skin is pale. Historical: - Allergies: 23:35 Sulfa (Sulfonamide Antibiotics); tl2 - Home Meds: 23:35 Synthroid Oral [Active]; tl2 - PMHx: 23:35 Hypertension; Hypothyroidism; Pancreatitis; tl2 - Immunization history:: Adult Immunizations up to date. - Social history:: Smoking status: Patient/guardian denies using tobacco. - Ebola Screening: : No symptoms or risks identified at this time. - Family history:: not pertinent. - Hospitalizations: : No recent hospitalization is reported. Screenin:38 Abuse screen: Denies threats or abuse. Nutritional screening: No deficits noted. tl2 Tuberculosis screening: No symptoms or risk factors identified. Fall Risk None identified. Assessment: 11/19 00:01 General: Appears uncomfortable, Behavior is calm, cooperative, appropriate for age. ea Pain: Complains of pain in epigastric area. Neuro: Level of Consciousness is awake, alert, obeys commands, Oriented to person, place, time. Cardiovascular: Patient's skin is warm and dry. Respiratory: Airway is patent Respiratory effort is even, unlabored, Respiratory pattern is regular, symmetrical. GI: Abdomen is round Bowel sounds present X 4 quads. Parent/caregiver reports the patient having nausea, vomiting, pain. Derm: Skin is pink, warm \T\ dry. 01:00 Reassessment: Patient appears in no apparent distress at this time. pt unable to tl2 tolerate PO contrast. MD notified, stated CT could just use IV. CT notified. 02:53 Reassessment: Patient and/or family updated on plan of care and expected duration. Pain ea level reassessed. Patient is alert, oriented x 3, equal unlabored respirations, skin warm/dry/pink. awaiting on CT results. 03:35 Reassessment: Patient and/or family updated on plan of care and expected duration. Pain ea level reassessed. Pt resting with eyes closed, respirations even and unlabored. Chest expansions even and symmetrical. No s/s of pain or discomfort noted at this time. 04:52 Reassessment: Patient and/or family updated on plan of care and expected duration. Pain ea level reassessed. Pt complaining of nausea, vomited x 1. Provider notified, medication order obtained, medication administered, pt tolerated well. 05:39 Reassessment: Patient and/or family updated on plan of care and expected duration. Pain ea level reassessed. Patient is alert, oriented x 3, equal unlabored respirations, skin warm/dry/pink. Report called to receiving nurse on second floor. Vital Signs: 11/18 23:35 BP 113 / 58; Pulse 87; Resp 18; Temp 98.2(O); Pulse Ox 97% on R/A; Weight 81.65 kg; tl2 Height 5 ft. 4 in. (162.56 cm); Pain 8/10; 23:53 BP 112 / 56; Pulse 62; Resp 18; Pulse Ox 97% on R/A; ea 11/19 00:00 BP 99 / 65; Pulse 57; Resp 18; Pulse Ox 89% ; ea 00:30 BP 99 / 65; Pulse 68; Resp 21; Pulse Ox 100% on 2 lpm NC; tl2 01:13 BP 99 / 60; Pulse 79; Resp 18; Pulse Ox 100% on 2 lpm NC; ea 01:53 BP 124 / 71; Pulse 88; Resp 18; Pulse Ox 100% on 2 lpm NC; tl2 02:53 BP 120 / 75; Pulse 86; Resp 18; Pulse Ox 100% on 2 lpm NC; ea 02:56 BP 120 / 75; Pulse 88; Resp 18; Pulse Ox 98% on 2 lpm NC; tl2 03:58 BP 118 / 74; Pulse 93; Resp 19; Pulse Ox 99% on 2 lpm NC; tl2 04:00 BP 121 / 72; Pulse 90; Resp 18; Pulse Ox 98% on 2 lpm NC; ea 05:36 BP 111 / 71; Pulse 88; Resp 20; Pulse Ox 95% on 2 lpm NC; ea 11/18 23:35 Body Mass Index 30.90 (81.65 kg, 162.56 cm) tl2 00:00 pt placed on O2 per NC at 2L ea ED Course: 11/18 23:19 Patient arrived in ED. ds1 23:25 Steffen Hansen MD is Attending Physician. rn 23:32 Nkechi Powers RN is Primary Nurse. tl2 23:33 Triage completed. tl2 23:35 Arm band placed on right wrist. tl2 23:38 Patient has correct armband on for positive identification. Bed in low position. Call tl2 light in reach. Side rails up X 1. Adult w/ patient. 23:45 Inserted saline lock: 20 gauge in left antecubital area, using aseptic technique. Blood ea collected. 11/19 00:01 Radiology exam delayed due to Patient has not started her oral contrast at this time. kw1 Nauseated. 01:[address] via wheelchair. kw1 03:18 Iggy Strauss MD is Hospitalizing Provider. rn 04:53 No provider procedures requiring assistance completed. Patient admitted, IV remains in ea place. Administered Medications: 11/18 02:43 Drug: Flagyl 500 mg Volume: 100 ml; Route: IVPB; Rate: 200 ml/hr; Infused Over: 30 ea mins; Site: left antecubital; 11/19 03:50 Follow up: Response: No adverse reaction; IV Status: Completed infusion ea 11/18 23:38 Drug: NS 0.9% 500 ml Route: IV; Rate: bolus; Site: left antecubital; ea 11/19 00:30 Follow up: IV Status: Completed infusion; IV Intake: 500ml ea 11/18 23:55 Drug: Zofran 4 mg Route: IVP; Site: left antecubital; ea 11/19 00:30 Follow up: Response: No adverse reaction; Marked relief of symptoms ea 11/18 23:57 Drug: morphine 4 mg Route: IVP; Site: left antecubital; ea 11/19 00:25 Follow up: Response: No adverse reaction; Pain is decreased ea 00:35 Drug: Zofran 4 mg Route: IVP; Site: left antecubital; ea 01:00 Follow up: Response: No adverse reaction ea 00:40 Drug: NS 0.9% 1000 ml Route: IV; Rate: 1000 ml; Site: left antecubital; ea 05:41 Follow up: Response: No adverse reaction; IV Status: Completed infusion; IV Intake: ea 1000ml 02:33 CANCELLED (Duplicate Order): fentaNYL (PF) 25 mcg IVP once ea 02:40 Drug: Rocephin - (cefTRIAXone) 1 grams Route: IVPB; Infused Over: 30 mins; Site: left ea antecubital; 03:00 Follow up: IV Status: Completed infusion; IV Intake: 10ml ; Medication administered IVP ea per pharmacy protocol 03:30 Follow up: Response: No adverse reaction; IV Status: Completed infusion ea 02:40 Drug: fentaNYL (PF) 25 mcg Route: IVP; Site: left antecubital; ea 03:15 Follow up: Response: No adverse reaction; Pain is decreased ea 04:49 Drug: Phenergan 12.5 mg Route: IVP; Site: left antecubital; ea 05:43 Follow up: Response: No adverse reaction; Marked relief of symptoms ea Intake: 00:30 IV: 500ml; Total: 500ml. ea 03:00 IV: 10ml; Total: 510ml. ea 05:41 IV: 1000ml; Total: 1510ml. ea Outcome: 03:17 Discharge ordered by . rn 03:18 Decision to Hospitalize by Provider. rn 04:00 Instructed on the need for admit, Demonstrated understanding of instructions. ea 05:40 Admitted to Med/surg accompanied by tech, via stretcher, room 205, Report called to ea Receiving nurse on second floor. 05:40 Condition: stable 05:55 Patient left the ED. ea Signatures: Tania Lopez ds1 Steffen Hansen MD MD rn Knox, Taylor, RN RN tl2 Amie Velasquez RN RN Carine Correa kw1 Corrections: (The following items were deleted from the chart) 03:59 00:30 BP 99 / 65; Pulse 68bpm; Resp 21bpm; Pulse Ox 100% RA; tl2 tl2 03:59 01:53 BP 124 / 71; Pulse 88bpm; Resp 18bpm; Pulse Ox 100% RA; tl2 tl2 03:59 02:56 BP 120 / 75; Pulse 88bpm; Resp 18bpm; Pulse Ox 98% RA; tl2 tl2 03:59 03:58 BP 118 / 74; Pulse 93bpm; Resp 19bpm; Pulse Ox 99% RA; tl2 tl2
--- NOTE | 2018-11-19 04:38 | P.HP ---
Certification for Inpatient Patient admitted to: Inpatient With expected LOS: >2 Midnights Practitioner: I am a practitioner with admitting privileges, knowledge of patient current condition, hospital course, and medical plan of care. Services: Services provided to patient in accordance with Admission requirements found in Title 42 Section 412.3 of the Code of Federal Regulations Patient History Date of Service: 11/19/18 Reason for admission: acute pancreatitis History of Present Illness: Ms Valdez is a 63 years old woman withy history of HTN, Hypothyroidism, pancreatitis about 4 years ago, who came to ED complaining of upper abdominal pain, mostly localized on left upper quadreant, radiated to the back, 10/10 of intensity, associated with nausea and vomiting, similar to previous episodes of pancreatitis. The symptoms started last night after eat pizza with two beers. She is a social drinker, not every day. She denied fever or chills. Lab work in ER remarkable for leukocytosis 14.5K, and elevated lipase 50469. CT abd/pelvis consistent with acute pancreatitis, no stones seen. Home medications list reviewed: Yes - Past Medical/Surgical History -: HTN -: hypothyroidism -: pancreatitis Past Surgical History: Reviewed- Non-Contributory - Family History Family History: Reviewed- Non-Contributory - Social History Smoking Status: Never smoker Alcohol use: Yes CD- Drugs: No Place of Residence: Home Review of Systems 10-point ROS is otherwise unremarkable Physical Examination - Physical Exam General: Alert, In no apparent distress HEENT: Atraumatic, PERRLA, Mucous membr. moist/pink, EOMI, Sclerae nonicteric Neck: Supple, 2+ carotid pulse no bruit, No LAD, Without JVD or thyroid abnormality Respiratory: Clear to auscultation bilaterally, Normal air movement Cardiovascular: Regular rate/rhythm, Normal S1 S2 Gastrointestinal: Normal bowel sounds, Tenderness (left and right upper quadrant tenderness to palpation.) Musculoskeletal: No tenderness Integumentary: No rashes Neurological: Normal speech, Normal strength at 5/5 x4 extr, Normal tone, Normal affect Lymphatics: No axilla or inguinal lymphadenopathy - Studies Laboratory Data (last 24 hrs) 11/18/18 23:54: WBC 14.5 H, Hgb 14.1, Hct 42.5, Plt Count 330 11/18/18 23:54: Sodium 143, Potassium 3.4 L, BUN 17, Creatinine 0.88, Glucose 131 H, Total Bilirubin 0.5, AST 68 H, ALT 80 H, Alkaline Phosphatase 90, Lipase 12342 H Assessment and Plan - Problems (Diagnosis) (1) Acute pancreatitis Current Visit: Yes Status: Acute Qualifiers: Pancreatitis type: unspecified pancreatitis type Acute pancreatitis complication: no infection or necrosis Qualified Code(s): K85.90 - Acute pancreatitis without necrosis or infection, unspecified (2) HTN (hypertension) Current Visit: Yes Status: Acute Qualifiers: Hypertension type: essential hypertension Qualified Code(s): I10 - Essential (primary) hypertension (3) Hypothyroidism Current Visit: Yes Status: Acute Qualifiers: Hypothyroidism type: unspecified Qualified Code(s): E03.9 - Hypothyroidism , unspecified - Plan The patient will be admitted to the medical floor due to acute pancreatitis. Will order IV fluids, pain medication and keep her NPO. Pending lipid panel and limited abdominal US. - Advance Directives Does patient have a Living Will: No Does patient have a Durable POA for Healthcare: No - Code Status/Comfort Care Code Status Assessed: Yes Code Status: Full Code
[2018-11-19] MEDS ORDERED: PROMETHAZINE 25 MG/ML VIAL ONE (04:56)
[2018-11-19] MEDS ORDERED: KETOROLAC 30 MG/ML INJ IV PRN (06:05)
[2018-11-19] MEDS ORDERED: ONDANSETRON 4 MG/2 ML VIAL IV PRN (06:05)
[2018-11-19] MEDS ORDERED: NA CHLORIDE 0.9% 1,000 ML IV SCH (06:05)
[2018-11-19] MEDS: ENOXAPARIN 40 MG/0.4 ML SQ SCH (08:05)
[2018-11-19] MEDS ORDERED: KCL 20 MEQ/100 mL IVPB 20 MEQ/100 ML BAG IV SCH (09:00)
--- NOTE | 2018-11-19 10:14 | P.PN ---
Subjective Date of Service: 11/19/18 Primary Care Provider: Dr. Mcnair Chief Complaint: acute pancreatitis Subjective: Other (Patient still with abdominal pain. No significant nausea.) Physical Examination - Vital Signs Temperature: 97.1 F Blood Pressure: 115/58 Pulse: 97 Respirations: 18 Pulse Ox (%): 94 - Physical Exam General: Alert, In no apparent distress, Oriented x3, Cooperative HEENT: Atraumatic Neck: Supple Respiratory: Clear to auscultation bilaterally, Normal air movement Cardiovascular: Normal pulses, Regular rate/rhythm Gastrointestinal: Hypoactive, Non-distended, No masses, No rebound, No guarding , Tenderness (Pain to the epigastric region) Musculoskeletal: No erythema, No tenderness, No warmth Integumentary: No erythema, No warmth, No cyanosis Neurological: Normal speech, Normal strength at 5/5 x4 extr, Normal tone, Normal affect - Studies Laboratory Data (last 24 hrs) 11/18/18 23:54: WBC 14.5 H, Hgb 14.1, Hct 42.5, Plt Count 330 11/18/18 23:54: Sodium 143, Potassium 3.4 L, BUN 17, Creatinine 0.88, Glucose 131 H, Total Bilirubin 0.5, AST 68 H, ALT 80 H, Alkaline Phosphatase 90, Lipase 90913 H Medications List Reviewed: Yes Assessment & Plan Discharge Plan: Home Plan to discharge in: 72 Hours Physician Review Additional Text: Impression: Nausea, vomiting with epigastric pain secondary to acute, recurrent pancreatitis likely related to alcohol Hypertension Hypothyroidism Elevated liver function likely related to fatty liver Obesity, BMI 37 Plan: Nausea, vomiting with epigastric pain secondary to acute, recurrent pancreatitis likely related to alcohol: Continue NPO. Will provide medication for pain and nausea. Continue IV fluids. Monitor electrolytes. Obtain abdominal ultimate to further evaluate. CT scan revealed pancreatitis but no stones to the biliary system. Will send for hepatitis panel and HIV. Alcohol cessation addressed in detail. Continue to reassess. Anticipate discharge in the next 2-3 days. I will turn the service over to Dr. Connor tomorrow. I will go over the plan of care with her. Hypertension: Will provide medication IV as needed Hypothyroidism: Will provide medication IV Elevated liver function likely related to Fatty liver: CT scan likely with fatty liver. Lifestyle modification education provided. Will send for hepatitis panel. Abdominal ultrasound pending Obesity, BMI 37: Will address lifestyle modification education Time Spent Managing Pts Care (In Minutes): 55
[2018-11-19] MEDS ORDERED: HYDRALAZINE HCL 20 MG/ML VIAL IV PRN (10:15)
[2018-11-19] MEDS ORDERED: MORPHINE 2 MG/ML SYR IV PRN (10:17)
--- NOTE | 2018-11-19 10:38 | RAD REPORT ---
EXAM DESCRIPTION: US - Abdomen Exam Limited - 11/19/2018 9:57 am CLINICAL HISTORY: Abdominal pain. COMPARISON: None. FINDINGS: The gallbladder wall is not thickened. A gallstone is not seen. The biliary tree is normal caliber. Fatty liver IMPRESSION: Unremarkable gallbladder ultrasound.
[2018-11-19 11:01] LABS: Thyroid Stimulating Hormone 0.106 uIU/mL (0.360-3.740)
[2018-11-19] MEDS: FAMOTIDINE 20 MG/2 ML VIAL IV SCH ×2 (12:11→20:38)
[2018-11-19] MEDS: NACHLORIDE 0.45% 1,000 ML IV SCH ×2 (12:18→20:30)
--- NOTE | 2018-11-19 12:35 | EKG ---
Test Date: 2018-11-18 Test Time: 23:50:07 Wire Spooler: MADELEINE MEASUREMENT RESULTS: Intervals: Rate: 59 NE: 140 QRSD: 94 QT: 438 QTc: 433 [place]: P: 23 NE: 140 QRS: -26 T: 6 INTERPRETIVE STATEMENTS: Sinus bradycardia Otherwise normal ECG No previous ECG available for comparison Electronically Signed On 11-19-18 12:34:28 DEALER DEVELOPMENT MANAGER by Saleem Pepe
[2018-11-19] MEDS ORDERED: POTASSIUM CL SA 10 MEQ TAB PO ONE (18:00)
[2018-11-19] MEDS ORDERED: ACETAMINOPHEN 650MG/RECT SUPP PR PRN (18:29)
[2018-11-19] MEDS: ACETAMINOPHEN 500 MG TAB PO PRN (20:32)
[2018-11-20] MEDS: NACHLORIDE 0.45% 1,000 ML IV SCH ×3 (02:05→20:12)
[2018-11-20] MEDS: LEVOTHYROXINE SODIUM 100 MCG VIAL IV SCH (05:06)
[2018-11-20 05:51] LABS: Absolute Lymphocytes (CBC) 0.9 K/uL (0.7-4.9); Absolute Monocytes 0.7 K/uL (0.1-1.3); Absolute Neutrophil 12.3 K/uL (1.8-8.0); Basophils % 0.3 % (0-1.3); Eosinophils % 0.1 % (0-4.4); Hematocrit 38.7 % (36.0-45.0); Lymphocytes % 6.5 % (15.3-44.8); Monocytes % 5.3 % (3.3-12.3); RBC Red Blood Cell Count 4.59 M/uL (3.86-4.86)
[2018-11-20 06:14] LABS: Urine Appearance CLEAR; Urine Bilirubin NEGATIVE (NEG); Urine Blood TRACE (NEG); Urine Color YELLOW; Urine Glucose NEGATIVE (NEG); Urine Microscopic Reflex ORDER UMIC; Urine Protein TRACE (NEG); Urine Specific Gravity >=1.030 (1.005-1.030); Urine Urobilinogen 0.2 mg/dL (0.2-1.0)
[2018-11-20 06:15] LABS: Albumin 3.4 g/dL (3.4-5.0); Bilirubin Total 0.8 mg/dL (0.2-1.0); Magnesium 2.2 mg/dL (1.8-2.4); Potassium 4.4 mmol/L (3.5-5.1); Protein, Total 6.5 g/dL (6.4-8.2)
[2018-11-20 06:16] LABS: Urine Bacteria <20 /HPF (<20); Urine Culture Reflex Order REFLEXED; Urine RBC <5 /HPF (NONE SEEN)
[2018-11-20 06:55] LABS: Blood Morphology Comment NOT SEEN (NOT SEEN); Platelet Estimate ADEQ; Urine White Blood Cell Casts OK
[2018-11-20] MEDS: ENOXAPARIN 40 MG/0.4 ML SQ SCH (08:58)
[2018-11-20] MEDS: FAMOTIDINE 20 MG/2 ML VIAL IV SCH ×2 (08:58→20:12)
--- NOTE | 2018-11-20 11:13 | RAD REPORT ---
EXAM DESCRIPTION: CT - Abdomen Pelvis W Contrast - 11/19/2018 3:08 am CLINICAL HISTORY: 63-year-old female with epigastric pain, nausea and vomiting TECHNIQUE: Axial CT imaging of the abdomen and pelvis was performed following the administration of intravenous contrast.. Sagittal and coronal reconstructed images were then performed. The CT stud y is performed according to ALARA (as low as reasonably achievable) or ALARA/IMAGE GENTLY, with autom atic adjustment of mA and/or kV according to patient size. Performed on: 11/19/2018 at 1:42 AM. COMPARISON: None FINDINGS: Lung bases: There is a left lower lobe calcified granuloma. There is minimal bibasilar ate lectasis and/or fibrosis. Liver: The liver is mildly enlarged and measures 19 cm in craniocaudal dimension. There is slightly h eterogeneous attenuation of the liver suggesting fatty infiltration with probable focal fatty sparing in the medial segment of the left hepatic lobe. Spleen: The spleen is normal is size, configuration and attenuation. Gallbladder and bile duct: The gallbladder is partially distended and is grossly unremarkable. Ther e is no biliary ductal dilatation. Pancreas: The pancreas is normal in size and configuration. There is mild peripancreatic inflammation and edema and there is edema surrounding the second and third portions of the duodenum as well as ed zackery within the anterior pararenal space laterally. These findings suggest possible acute pancreatitis . Adrenal Glands: The adrenal glands are normal in size and configuration. Kidneys: The kidneys are normal in size and configuration. There is no evidence of hydronephrosis. Th ere is no evidence of nephrolithiasis. No definite solid or cystic renal mass lesions are identified. Stomach: The stomach is grossly normal. There is no definite hiatal hernia. Bowel: The bowel gas pattern is non specific and non obstructive. There is occasional colonic diverti culosis. Appendix: The appendix is normal. Free air: There is no evidence of free air. Free fluid: There is mild retroperitoneal free fluid likely related to pancreatitis. Vasculature: The aorta is normal in caliber and contour. The inferior vena cava is grossly unremarkab le. Lymphadenopathy: No pathologic lymphadenopathy is identified. Bladder: The bladder is well distended and smooth in contour. Reproductive: The uterus is grossly within normal limits. There is a small calcification within the u terus Bones: There is marked levoscoliosis of the lumbar spine and there are chronic degenerative changes o f the visualized thoracolumbar spine. Soft tissues: No focal soft tissue abnormalities are identified. There is a small fat-containing vent ral umbilical hernia. IMPRESSION: 1. There is mild diffuse peripancreatic inflammation and edema concerning for underlying acute pancreatitis. Correlate clinically. 2. Hepatomegaly and heterogeneous attenuation of the liver favoring fatty infiltration with focal fat ty sparing involving portions of the the medial segment of the left hepatic lobe. 3. Evidence of prior granulomatous disease. 4. Marked levoscoliosis of the lumbar spine. 5. Occasional colonic diverticulosis. Electronically signed by: Genia Fenton DO 11/19/2018 2:55 AM CIVIL ENGINEER'S AIDE Due to temporary technical issues with the PACS/Fluency reporting system, reports are being signed by the in house radiologist as a courtesy to ensure prompt reporting. The interpreting radiologist is f ully responsible for the content of the report.
--- NOTE | 2018-11-20 15:41 | P.PN ---
Subjective Date of Service: 11/20/18 Primary Care Provider: Dr. Mcnair Chief Complaint: acute pancreatitis Pt seen and examined at bedside with RN. Chart Reviewed. Case DW during Grand rounds at bedside. Pt is currently doing well. No C.o Overnight. Currently NPO and no abd pain noted. Advance diet as tolerated today. Review of Systems 10-point ROS is otherwise unremarkable Physical Examination - Vital Signs Temperature: 98.1 F Blood Pressure: 132/76 Pulse: 77 Respirations: 16 Pulse Ox (%): 95 - Physical Exam General: Alert, In no apparent distress HEENT: Atraumatic, PERRLA, EOMI Neck: Supple, JVD not distended Respiratory: Clear to auscultation bilaterally, Normal air movement Cardiovascular: Regular rate/rhythm, Normal S1 S2 Gastrointestinal: Normal bowel sounds, No tenderness Musculoskeletal: No tenderness Integumentary: No rashes Neurological: Normal speech, Normal tone, Normal affect Lymphatics: No axilla or inguinal lymphadenopathy - Studies Medications List Reviewed: Yes Assessment And Plan - Current Problems (Diagnosis) (1) Acute pancreatitis Current Visit: Yes Status: Acute Plan: Acute pancreatitis most likely 2.2 to alcohol -IV fluids and NPO at this time -Abd U/S negative for gallstone. -Lipid WNL -clinically improving. Will advance diet as tolerated Qualifiers: Pancreatitis type: alcohol induced Acute pancreatitis complication: no infection or necrosis Qualified Code(s): K85.20 - Alcohol induced acute pancreatitis without necrosis or infection (2) HTN (hypertension) Current Visit: Yes Status: Chronic Qualifiers: Hypertension type: essential hypertension Qualified Code(s): I10 - Essential (primary) hypertension (3) Hypothyroidism Current Visit: Yes Status: Chronic Qualifiers: Hypothyroidism type: acquired Qualified Code(s): E03.9 - Hypothyroidism, unspecified (4) Alcohol use Current Visit: Yes Status: Chronic - Plan Awaiting clinical Improvement at this time. Anticipate discharge in next 24-48 hr Discharge Plan: Home Plan to discharge in: 48 Hours - Code Status/Comfort Care Code Status Assessed: Yes Critical Care: No
[2018-11-21] MEDS: NACHLORIDE 0.45% 1,000 ML IV SCH (02:33)
[2018-11-21] MEDS: ACETAMINOPHEN 500 MG TAB PO PRN (04:19)
[2018-11-21] MEDS: LEVOTHYROXINE SODIUM 100 MCG VIAL IV SCH (05:47)
[2018-11-21] MEDS: ENOXAPARIN 40 MG/0.4 ML SQ SCH (08:20)
[2018-11-21] MEDS: FAMOTIDINE 20 MG/2 ML VIAL IV SCH (08:20)
--- NOTE | 2018-11-21 14:23 | P.DS ---
Admission Date: 11/19/18 Discharge Date: 11/21/18 Primary Care Provider: Dr. Mcnair Disposition: ROUTINE DISCHARGE Discharge Condition: GOOD Reason for Admission: acute pancreatitis - Problems (1) Acute pancreatitis Status: Acute Qualifiers: Pancreatitis type: alcohol induced Acute pancreatitis complication: no infection or necrosis Qualified Code(s): K85.20 - Alcohol induced acute pancreatitis without necrosis or infection (2) HTN (hypertension) Status: Chronic Qualifiers: Hypertension type: essential hypertension Qualified Code(s): I10 - Essential (primary) hypertension (3) Hypothyroidism Status: Chronic Qualifiers: Hypothyroidism type: acquired Qualified Code(s): E03.9 - Hypothyroidism, unspecified (4) Alcohol use Status: Chronic Brief History of Present Illness: See HPI Hospital Course: Overall during the hospital stay patient remained stable Patient was initially admitted to the hospital for acute pancreatitis with elevated lipase most likely secondary to dietary habits and alcohol use Patient was kept NPO on IV fluids here in the hospital. Patient had marked improvement in her symptoms and thus was switched over to full liquid diet patient tolerated diet well and thus was advanced to a GI soft. Once patient was able to tolerate her diet well. Patient then was discharged home under stable condition was asked to follow up with primary care provider in about 1-2 days post discharge. Vital Signs/Physical Exam: Temp Pulse Resp BP Pulse Ox 98.8 F 66 18 171/81 H 96 11/21/18 08:00 11/21/18 08:00 11/21/18 08:00 11/21/18 08:00 11/21/18 08:00 General: Alert, In no apparent distress HEENT: Atraumatic, PERRLA, EOMI Neck: Supple, JVD not distended Respiratory: Clear to auscultation bilaterally, Normal air movement Cardiovascular: Regular rate/rhythm, Normal S1 S2 Gastrointestinal: Normal bowel sounds, No tenderness Musculoskeletal: No tenderness Integumentary: No rashes Neurological: Normal speech, Normal tone, Normal affect Lymphatics: No axilla or inguinal lymphadenopathy Laboratory Data at Discharge: WBC 14.0 K/uL (4.3-10.9) H 11/20/18 05:25 Hgb 13.1 g/dL (12.0-15.0) 11/20/18 05:25 Hct 38.7 % (36.0-45.0) 11/20/18 05:25 Plt Count 239 K/uL (152-406) D 11/20/18 05:25 Sodium 141 mmol/L (136-145) 11/20/18 05:25 Potassium 4.4 mmol/L (3.5-5.1) 11/20/18 05:25 BUN 14 mg/dL (7-18) 11/20/18 05:25 Creatinine 0.69 mg/dL (0.55-1.3) 11/20/18 05:25 Glucose 140 mg/dL (74-106) H 11/20/18 05:25 Magnesium 2.2 mg/dL (1.8-2.4) 11/20/18 05:25 Total Bilirubin 0.8 mg/dL (0.2-1.0) 11/20/18 05:25 AST 24 U/L (15-37) 11/20/18 05:25 ALT 63 U/L (12-78) 11/20/18 05:25 Alkaline Phosphatase 75 U/L (45-117) 11/20/18 05:25 Triglycerides 56 mg/dL (<150) 11/19/18 06:29 Cholesterol 176 mg/dL (<200) 11/19/18 06:29 HDL Cholesterol 58 mg/dL (40-60) 11/19/18 06:29 Cholesterol/HDL Ratio 3.03 11/19/18 06:29 Lipase 656 U/L (73-393) H 11/20/18 05:25 Home Medications: Levothyroxine Sodium [Synthroid] 1 tab PO 0630 11/19/18 Liothyronine Sodium [Cytomel] 1 tab PO DAILY 11/19/18 Telmisartan 1 tab PO DAILY 11/19/18 Diet: Regular Activity: Ad wang Followup: Isaac Griffith MD [ASSOCIATE-ACTIVE - CAN ADMIT] - 1 Week (Call for an appointment.)
== END 2018-11-21 12:20 | disposition home or self-care (01) | DRG 439 ==
LOC: ER 23:18 → ERHOLD 11-19 04:50 → 2ND 11-19 05:45
PROVIDERS: ADMIT Internal Medicine; ATTEND Family Medicine
DX: K85.20 Alcohol induced acute pancreatitis without necrosis or infection (principal); F10.988 Alcohol use, unspecified with other alcohol-induced disorder; E03.9 Hypothyroidism, unspecified; Z88.2 Allergy status to sulfonamides; I10 Essential (primary) hypertension; R94.5 Abnormal results of liver function studies; E66.9 Obesity, unspecified; Z68.37 Body mass index [BMI] 37.0-37.9, adult
CPT/HCPCS: 36415; 74177; 76705; 80048; 80053; 80061; 80076; 81003; 81015; 83690; 83735; 84132; 84145; 84439; 84443; 85025; 87086; 87088; 93005; 96361; 96365; 96366; 96375; 97161; 99285; J0696; J1650; J2405; J2550; J3010; J7030; Q9967

== ENCOUNTER 2023-01-22 00:56 | Inpatient (IN) | payer BC, OTHER ==
--- OUTSIDE RECORDS SUMMARY | 2023-01-22 00:59 | XMS REPORT | Continuity of Care Document ---
:1955 Author Organization [facility] t Address [address] [place] [address] Care Team Providers Name Role Phone SHADI FRANCIS Attending Clinician Unavailable Payers Payer Name Policy Type Policy Number Effective Date Expiration Date S mitch [facility] [id number] 2010 00:00:00 Problems This patient has no known problems. Allergies, Adverse Reactions, Alerts Allergy Allergy Status Severity Reaction(s) Onset Inactive Treating Comm ents Source Name Type Date Date Clinician Sulfa DA Active [facility] (Sulfona 02-27 [facility] 00:00: Orthope Antibiot 00 dic ics) [facility] NO KNOWN Drug Active [facility] ALLERGIE Class [facility] Medications This patient has no known medications. Procedures This patient has no known procedures. Encounters Start End Encounter Admission Attending Care Care Encounter Source Date/Time Date/Time Type Type Clinicians Facility Department ID 2020-07-01 2020-07-01 Outpatient Julian FRANCIS [facility] [id number] 09:50:00 09:50:00 SHADI manzano [facility] Results This patient has no known results.
[2023-01-22] MEDS ORDERED: METOCLOPRAMIDE 10 MG/2mL INJ ONE (02:21)
[2023-01-22] MEDS ORDERED: ONDANSETRON 4 MG/2 ML VIAL ONE ×2 (02:22→10:16)
[2023-01-22] MEDS ORDERED: MORPHINE 4 MG/ML SYR ONE ×2 (02:22→10:16)
[2023-01-22] MEDS ORDERED: KETOROLAC 30 MG/ML INJ ONE (02:22)
[2023-01-22] MEDS ORDERED: NA CHLORIDE 0.9% 1,000 ML ONE ×2 (02:23→09:51)
[2023-01-22 03:33] LABS: Absolute Lymphocytes (CBC) 0.7 K/uL (0.7-4.9); Hematocrit 40.3 % (36.0-45.0); Lymphocytes % 6.5 % (15.3-44.8); MCV 84.3 fL (80-100); MPV 7.8 fL (7.6-11.3); RBC Red Blood Cell Count 4.78 M/uL (3.86-4.86)
[2023-01-22 04:12] LABS: Albumin 3.4 g/dL (3.4-5.0); Bilirubin Total 0.8 mg/dL (0.2-1.0); Potassium 3.8 mEq/L (3.5-5.1)
[2023-01-22 04:24] LABS: Blood Morphology Comment NOT SEEN (NOT SEEN); Platelet Estimate ADEQ
[2023-01-22 05:19] LABS: Renal Epithelial <5 /HPF (None Seen); Urine Bacteria None Seen /HPF (<20); Urine Bilirubin NEGATIVE (Negative); Urine Blood Negative (Negative); Urine Clarity Clear (Clear); Urine Color Yellow (Yellow); Urine Glucose NEGATIVE (Negative); Urine Mucus Slight /HPF (None Seen); Urine Protein TRACE (Negative); Urine RBC None Seen /HPF (None Seen); Urine Urobilinogen Normal (Normal); Urine pH 5.5 (5.0-7.0)
[2023-01-22 05:35] LABS: Specific Gravity > 1.035 (1.005-1.030)
[2023-01-22] MEDS ORDERED: POTASSIUM CHLORIDE-0.45% NACL 20 MEQ/1,000 ML BAG IV ONE (07:30)
--- NOTE | 2023-01-22 08:03 | RAD REPORT ---
EXAM DESCRIPTION: CT - Abdomen Pelvis W Contrast - 01/22/2023 4:46 am CLINICAL HISTORY: upper abd pain, vomiting COMPARISON: Abdomen Pelvis W Contrast dated 11/19/2018; Abdomen Exam Limited dated 01/22/2023; Abdom en Exam Limited dated 11/19/2018 TECHNIQUE: Thin cut axial CT imaging of the abdomen and pelvis was performed following intravenous a dministration of 95 mL Isovue 300. Multiplanar reformats were generated and reviewed. All CT scans are performed using dose optimization technique as appropriate and may include automated exposure control or mA/KV adjustment according to patient size. Please note that delay in reporting was due to recurrent PACS tissues, resulting in inability to send the exam to the overnight service for reporting. FINDINGS: Left lower lobe subpleural 1 centimeter calcified granuloma. Platelike atelectatic changes at both lung bases. Findings are stable. The liver demonstrates diffuse parenchymal hypoattenuation suggesting steatosis. Lobulated regions in segment 4 A most superiorly, and segment 4B adjacent to the gallbladder neck, demonstrating relative hyperenhancement is stable, and favored to represent focal fatty sparing. Spleen, and adrenal glands show no suspicious findings. Gallbladder and biliary tree are also without suspicious finding. Mild peripancreatic edematous changes. Small volume fluid tracking along the upper retroperitoneum an d paracolic gutters. The appearance is similar to findings on the [address] Mild fluid diste ntion of the second and third part of duodenum with mucosal hyperenhancement. Mild colonic diverticulosis. Symmetric renal function is seen with no hydronephrosis or suspicious renal mass. No dilated bowel loops or bowel wall thickening. No free air, free fluid or inflammatory stranding. N o hernia, mass or bulky lymphadenopathy. The urinary bladder is without significant finding. No suspicious bony findings. Levoconvex scoliosis of the upper lumbar spine. IMPRESSION: Peripancreatic edematous changes. Small volume fluid tracking along the upper retroperit oneum and paracolic gutters. Findings suggest acute pancreatitis. Similar findings on the prior CT ma y relate to recurrence of pancreatitis. Mild adjacent duodenitis. Other stable findings including diffuse hepatic parenchymal steatosis with focal fatty sparing, and c olonic diverticulosis. The findings were communicated to Sawyer Barr on 01/22/2023 at 07:59 hours.
--- NOTE | 2023-01-22 08:09 | ER ---
Nurse's Notes [facility] Name: Amy Valdez Age: 67 yrs Sex: Female : 1955 Arrival Date: 01/22/2023 Time: 00:56 Bed 19 Private MD: Diagnosis: Acute pancreatitis with infected necrosis, unspecified;Abdominal pain, unspecified Presentation: 01/22 01:12 Onset of symptoms was January 22, 2023. ha1 01:13 Chief complaint: Patient states: upper abdominal pain of 10 with vomiting x 3 pf1 episodes,onset 2200 tonight. Patient stated history of pancreatitis. 01:13 Coronavirus screen: Vaccine status: Patient reports receiving the 2nd dose of the covid pf1 vaccine. Moderna Client denies travel out of the [place] in the last 14 days. Client presents with at least one sign or symptom that may indicate coronavirus-19. Standard/surgical mask placed on the client. Ebola Screen: Patient negative for fever greater than or equal to 101.5 degrees Fahrenheit, and additional compatible Ebola Virus Disease symptoms. Initial Sepsis Screen: Does the patient meet any 2 criteria? No. Patient's initial sepsis screen is negative. Does the patient have a suspected source of infection? No. Patient's initial sepsis screen is negative. Risk Assessment: Do you want to hurt yourself or someone else? Patient reports no desire to harm self or others. 01:13 Method Of Arrival: Wheelchair pf1 01:13 Acuity: CLIVE 3 pf1 Historical: - Allergies: 01:45 Sulfa (Sulfonamide Antibiotics); pf1 - PMHx: 01:45 Hypertension; Hypothyroidism; Pancreatitis; pf1 - Immunization history:: Adult Immunizations up to date. - Social history:: Patient/guardian denies using street drugs, IV drugs, caffeine, over the counter diet medications, tobacco products, Reports occasional alcohol, Smoking status: unknown. - Family history:: not pertinent. Screenin:12 [facility] ED Fall Risk Assessment (Adult) History of falling in the last 3 months, ha1 including since admission No falls in past 3 months (0 pts) Confusion or Disorientation No (0 pts) Intoxicated or Sedated No (0 pts) Impaired Gait No (0 pts) Mobility Assist Device Used No (0 pt) Altered Elimination No (0 pt) Score/Fall Risk Level 0 - 2 = Low Risk Oriented to surroundings, Maintained a safe environment, Educated pt \\T\\ family on fall prevention, incl call for assistance when getting out of bed, Hourly rounding (assess needs \\T\\ fall precautionary measures) done. Abuse screen: Denies threats or abuse. Denies injuries from another. Nutritional screening: No deficits noted. Tuberculosis screening: No symptoms or risk factors identified. Assessment: 01:12 General: Appears uncomfortable, Behavior is calm, cooperative. Pain: Complains of pain ha1 in abdomen Pain does not radiate. Pain currently is 10 out of 10 on a pain scale. Quality of pain is described as burning, crampy, Pain began suddenly, Alleviated by medications. Neuro: Level of Consciousness is awake, alert, obeys commands, Oriented to person, place, time, situation. Cardiovascular: Capillary refill < 3 seconds Patient's skin is warm and dry. Respiratory: Airway is patent Respiratory effort is even, unlabored, Respiratory pattern is regular, symmetrical. GI: Abdomen is non-distended, obese, Bowel sounds present X 4 quads. Reports nausea, vomiting. : No signs and/or symptoms were reported regarding the genitourinary system. Derm: Skin is pink, warm \\T\\ dry. Musculoskeletal: Circulation, motion, and sensation intact. Range of motion: intact in all extremities. 02:10 Reassessment: Patient and/or family updated on plan of care and expected duration. Pain ha1 level reassessed. Patient is alert, oriented x 3, equal unlabored respirations, skin warm/dry/pink. Bob from the lab states " blood coagulated we need a recollect.". 03:30 Reassessment: Patient and/or family updated on plan of care and expected duration. Pain ha1 level reassessed. Patient is alert, oriented x 3, equal unlabored respirations, skin warm/dry/pink. Patient states feeling better. Patient states symptoms have improved. 04:30 Reassessment: Patient and/or family updated on plan of care and expected duration. Pain ha1 level reassessed. Patient is alert, oriented x 3, equal unlabored respirations, skin warm/dry/pink. pain 4/10 Patient states feeling better. Patient states symptoms have improved. 05:27 Reassessment: Patient and/or family updated on plan of care and expected duration. Pain ha1 level reassessed. Patient is alert, oriented x 3, equal unlabored respirations, skin warm/dry/pink. Patient states feeling better. Patient states symptoms have improved. 06:27 Reassessment: Patient and/or family updated on plan of care and expected duration. Pain ha1 level reassessed. Patient is alert, oriented x 3, equal unlabored respirations, skin warm/dry/pink. Patient states feeling better. Patient states symptoms have improved. 07:00 Reassessment: Patient appears in no apparent distress at this time. No changes from kc6 previously documented assessment. Patient and/or family updated on plan of care and expected duration. Pain level reassessed. Patient is alert, oriented x 3, equal unlabored respirations, skin warm/dry/pink. 08:00 Reassessment: Patient appears in no apparent distress at this time. No changes from kc6 previously documented assessment. Patient and/or family updated on plan of care and expected duration. Pain level reassessed. Patient is alert, oriented x 3, equal unlabored respirations, skin warm/dry/pink. Vital Signs: 01:13 BP 109 / 66; Pulse 77; Resp 18; Temp 97.8; Pulse Ox 93% ; Weight 86.18 kg; Height 5 ft. pf1 4 in. ; Pain 10/10; 02:55 BP 121 / 59; Pulse 74; Resp 18 S; Pulse Ox 100% on R/A; ha1 03:30 BP 116 / 75; Pulse 85; Resp 17 S; Pulse Ox 97% on R/A; ha1 04:30 BP 115 / 68; Pulse 81; Resp 18 S; Pulse Ox 95% on R/A; ha1 05:27 BP 120 / 69; Pulse 87; Resp 17 S; Pulse Ox 96% ; ha1 06:27 BP 125 / 73; Pulse 80; Resp 18 S; Pulse Ox 96% on R/A; ha1 08:48 BP 121 / 70; Pulse 79; Resp 17 S; Pulse Ox 96% on R/A; kc6 01:13 Body Mass Index 32.61 (86.18 kg, 162.56 cm) pf1 01:13 Pain Scale: Adult pf1 ED Course: 01:00 Patient arrived in ED. jj6 01:08 Peter Burkett MD is Attending Physician. sp4 01:12 Arm band placed on right wrist. ha1 01:12 Patient has correct armband on for positive identification. Placed in gown. Bed in low ha1 position. Call light in reach. Side rails up X 1. Adult w/ patient. 01:30 Anika Guerrero RN is Primary Nurse. ha1 01:35 Missed attempt(s): 20 gauge in right antecubital area. ha1 01:45 Triage completed. pf1 01:50 Missed attempt(s): 22 gauge in left forearm. attempt was performed by charge nurse, [facility] Merry RN. 02:25 Missed attempt(s): 20 gauge in left upper arm. attempt was performed by [place] [id number] pilot supervisor, Elva . 02:50 Inserted saline lock: 20 gauge in left upper arm, using aseptic technique. ,using 1 aseptic technique. Mid line put in place by [place] nurse practitioner. 03:18 CBC with Diff Sent. ha1 03:18 CMP Sent. ha1 03:18 Lipase Sent. ha1 04:48 CT Abd/Pelvis - IV Contrast Only In Process Unspecified. EDMS 05:25 US Abdomen Limited In Process Unspecified. EDMS 07:00 Report received from Anika Guerrero RN. kc6 07:09 Attending Physician role handed off by Peter Burkett MD ms3 07:09 Sawyer Barr DO is Attending Physician. ms3 08:09 Wilber Hansen MD is Hospitalizing Provider. ms3 09:11 Diet: Patient is NPO. mm9 15:38 No provider procedures requiring assistance completed. Patient admitted, IV remains in kc6 place. Administered Medications: 02:58 Drug: morphine IVP or IV 4 mg Route: IVP; Infused Over: 4 mins; Site: left upper arm; ha1 03:30 Follow up: Response: No adverse reaction; Pain is decreased; RASS: Alert and Calm (0) ha1 03:02 Drug: metoCLOPramide IVP 10 mg Route: IVP; Site: left upper arm; ha1 03:30 Follow up: Response: No adverse reaction ha1 03:05 Drug: Ondansetron IVP 8 mg Route: IVP; Site: left upper arm; ha1 03:30 Follow up: Response: No adverse reaction; Nausea is decreased ha1 03:10 Drug: Ketorolac IVP 30 mg Route: IVP; Site: left upper arm; ha1 03:30 Follow up: Response: No adverse reaction; Pain is decreased ha1 03:40 Drug: NS 0.9% IV 1000 ml Route: IV; Rate: 1 bolus; Site: left upper arm; ha1 05:27 Follow up: Response: No adverse reaction; IV Status: Completed infusion; IV Intake: ha1 1000ml 07:44 Drug: NS 0.45 % with KCl IV 20 mEq/L 1000 ml Route: IV; Rate: 125 ml/hr; Site: left kc6 forearm; Medication: 15:38 VIS not applicable for this client. kc6 Intake: 05:27 IV: 1000ml; Total: 1000ml. ha1 Outcome: 08:09 Decision to Hospitalize by Provider. ms3 15:38 Admitted to Med/surg accompanied by tech, via wheelchair, room 409, with chart, Report kc6 called to MICHELLE Cutler 15:38 Condition: stable 15:38 Instructed on the need for admit. 15:38 Patient left the ED. kc6 Signatures: Dispatcher [employer] EDMS Sawyer Barr DO DO ms3 Brandy Hernandez [email or web address] Anika Guerrero RN RN ha1 Gabrielle Andino RN RN [email or web address] Dolores Morris Pam[place], RN RN pf1 Peter Burkett MD MD sp4
--- NOTE | 2023-01-22 08:09 | EDPHYS ---
Physician Documentation [facility] Name: Amy Valdez Age: 67 yrs Sex: Female : 1955 Arrival Date: 01/22/2023 Time: 00:56 Bed 19 Private MD: ED Physician Sawyer Barr HPI: 01/22 01:08 This 67 yrs old Female presents to ER via Unassigned with complaints of sp4 Nausea/Vomiting, Abdominal Pain. 01:32 This very pleasant 67-year-old female with history of prior pancreatitis presents with sp4 acute onset of upper abdominal pain associated with multiple episodes of vomiting and nausea starting at 10:30 PM after patient consumed [employer] and drunk 1 beer and ate some sausage as well and some chocolate chip cookie. Patient states that she does get pancreatitis acutely and this is her fourth bout of abdominal pain associated with pancreatitis and she is certain of it. . This time patient reports moderate to severe upper abdominal pain associated with nausea. Historical: - Allergies: 01:45 Sulfa (Sulfonamide Antibiotics); pf1 - PMHx: 01:45 Hypertension; Hypothyroidism; Pancreatitis; pf1 - Immunization history:: Adult Immunizations up to date. - Social history:: Patient/guardian denies using street drugs, IV drugs, caffeine, over the counter diet medications, tobacco products, Reports occasional alcohol, Smoking status: unknown. - Family history:: not pertinent. ROS: 01:32 Constitutional: Negative for fever, chills, and weight loss, Eyes: Negative for injury, sp4 pain, redness, and discharge, ENT: Negative for injury, pain, and discharge, Neck: Negative for injury, pain, and swelling, Cardiovascular: Negative for chest pain, palpitations, and edema, Respiratory: Negative for shortness of breath, cough, wheezing, and pleuritic chest pain, Abdomen/GI: Positive for upper abdominal pain, positive for moderate abdominal pain, positive for nausea and vomiting, negative for diarrhea or constipation Back: Negative for injury and pain, : Negative for injury, bleeding, discharge, and swelling, MS/Extremity: Negative for injury and deformity, Skin: Negative for injury, rash, and discoloration, Neuro: Negative for headache, weakness, numbness, tingling, and seizure, Psych: Negative for depression, anxiety, Allergy/Immunology: Negative for hives, rash, and allergies Endocrine: Negative for neck swelling, polydipsia, polyuria, polyphagia, and weight changes Hematologic/Lymphatic: Negative for swollen nodes, abnormal bleeding, and unusual bruising Exam: 01:32 Constitutional: This is a well developed, well nourished patient who is awake, alert, sp4 and in no acute distress. Overweight female uncomfortable appearing but not in distress Head/Face: Normocephalic, atraumatic. Eyes: Pupils equal round and reactive to light, extra-ocular motions intact. Lids and lashes normal. Conjunctiva and sclera are not injected. Cornea within normal limits. Periorbital areas with no swelling, redness, or edema. ENT: Nares patent. No nasal discharge, no septal abnormalities noted. Tympanic membranes are normal and external auditory canals are clear. Oropharynx with no redness, swelling, or masses, exudates, or evidence of obstruction, uvula midline. Mucous membranes moist. Neck: Trachea midline, no thyromegaly or masses palpated, and no cervical lymphadenopathy. Supple, full range of motion without nuchal rigidity, or vertebral point tenderness. No Meningismus. Chest/axilla: Normal chest wall appearance and motion. Nontender with no deformity. No lesions are appreciated. Cardiovascular: Regular rate and rhythm with a normal S1 and S2. No gallops, murmurs, or rubs. Normal PMI, no JVD. No pulse deficits. Respiratory: Lungs have equal breath sounds bilaterally, clear to auscultation and percussion. No rales, rhonchi or wheezes noted. No increased work of breathing, no retractions or nasal flaring. Abdomen/GI: Soft, obese abdomen, generalized abdominal discomfort to palpation, epigastric abdominal tenderness, right upper quadrant abdominal tenderness, no rebound, no rigidity Back: No spinal tenderness. No costovertebral tenderness. Skin: Warm, dry with normal turgor. Normal color with no rashes, no lesions, and no evidence of cellulitis. MS/ Extremity: Pulses equal, no cyanosis. Neurovascular intact. Full, normal range of motion. Neuro: Awake and alert, GCS 15, oriented to person, place, time, and situation. Cranial nerves II-XII grossly intact. Motor strength 5/5 in all extremities. Sensory grossly intact. Psych: Awake, alert, with orientation to person, place and time. Behavior, mood, and affect are within normal limits 05:17 ECG was reviewed by the Attending Physician. EKG time 0 442, there is normal sinus sp4 rhythm with a rate of 86, no ST elevation or depression, no ectopy, normal EKG Vital Signs: 01:13 BP 109 / 66; Pulse 77; Resp 18; Temp 97.8; Pulse Ox 93% ; Weight 86.18 kg; Height 5 ft. pf1 4 in. ; Pain 10/10; 02:55 BP 121 / 59; Pulse 74; Resp 18 S; Pulse Ox 100% on R/A; ha1 03:30 BP 116 / 75; Pulse 85; Resp 17 S; Pulse Ox 97% on R/A; ha1 04:30 BP 115 / 68; Pulse 81; Resp 18 S; Pulse Ox 95% on R/A; ha1 05:27 BP 120 / 69; Pulse 87; Resp 17 S; Pulse Ox 96% ; ha1 06:27 BP 125 / 73; Pulse 80; Resp 18 S; Pulse Ox 96% on R/A; ha1 08:48 BP 121 / 70; Pulse 79; Resp 17 S; Pulse Ox 96% on R/A; kc6 01:13 Body Mass Index 32.61 (86.18 kg, 162.56 cm) pf1 01:13 Pain Scale: Adult pf1 Procedures: 03:19 Peripheral line: by aseptic technique a peripheral line was placed in the left 18g 10Cm la1 Midline inserted to LUE via dynamic US guidance, + blood return, flushes easily.. MDM: 01:26 Patient medically screened. sp4 04:32 Differential diagnosis: Nonspecific abd pain, gastritis, cholecystitis, pancreatitis, sp4 appendicitis, diverticulitis, viral gastroenteritis, gastroenteritis. Data reviewed: vital signs, nurses notes, lab test result(s), amylase and lipase, cardiac enzymes, CBC, electrolytes, hepatic panel. Consideration of Admission/Observation Patient was admitted/placed on observation. Escalation of care including admission/observation considered. ED course: There is elevated lipase and associated elevated liver enzymes suggesting acute pancreatitis. . 08:22 I considered the following discharge prescriptions or medication management in the [facility] emergency department Medications were administered in the Emergency Department. See MAR. Discussion of test interpretation with radiology: I had a discussion with radiology regarding a test interpretation. Discussed CT findings with Dr Whyte and patient with similar appearance of pancreas from 2019. 01/22 01:09 Order name: CBC with Diff; Complete Time: 04:29 sp4 01/22 01:09 Order name: CMP; Complete Time: 04:29 sp4 01/22 01:09 Order name: Lipase; Complete Time: 04:29 sp4 01/22 01:09 Order name: Urinalysis w/ reflexes; Complete Time: 05:45 sp4 01/22 02:27 Order name: Creatine Phosphokinase; Complete Time: 04:29 EDMS 01/22 02:27 Order name: Troponin High Sensitivity; Complete Time: 04:29 EDMS 01/22 03:36 Order name: Manual Differential; Complete Time: 04:29 EDMS 01/22 07:45 Order name: Lipid Profile; Complete Time: 09:30 ms3 01/22 09:05 Order name: Basic Metabolic Panel EDMS 01/22 09:05 Order name: Basic Metabolic Panel EDMS 01/22 09:05 Order name: CBC with Automated Diff EDMS 01/22 09:05 Order name: CBC with Automated Diff EDMS 01/22 09:05 Order name: Lipase EDMS 01/22 09:05 Order name: Lipase EDMS 01/22 09:05 Order name: Liver (Hepatic) Function EDMS 01/22 09:05 Order name: Liver (Hepatic) Function EDMS 01/22 09:05 Order name: Protime (+INR) EDMS 01/22 09:05 Order name: Protime (+INR) EDMS 01/22 09:05 Order name: PTT, Activated Partial Thromb EDMS 01/22 09:05 Order name: PTT, Activated Partial Thromb EDMS 01/22 01:31 Order name: CT Abd/Pelvis - IV Contrast Only; Complete Time: 08:16 sp4 01/22 04:30 Order name: US Abdomen Limited; Complete Time: 08:16 sp4 01/22 09:05 Order name: NPO EDMI 01/22 01:09 Order name: IV Saline Lock; Complete Time: 03:18 sp4 01/22 01:09 Order name: Labs collected and sent; Complete Time: 03:18 sp4 01/22 01:37 Order name: EKG - Nurse/Tech; Complete Time: 04:59 sp4 EC:17 Rate is 86 beats/min. Rhythm is regular, Normal Sinus Rhythm. QRS [place] is Normal. NE sp4 interval is normal. QRS interval is normal. QT interval is normal. T waves are Normal. No ST changes noted. Clinical impression: No evidence of ischemia. Interpreted by me. Administered Medications: 02:58 Drug: morphine IVP or IV 4 mg Route: IVP; Infused Over: 4 mins; Site: left upper arm; ha1 03:30 Follow up: Response: No adverse reaction; Pain is decreased; RASS: Alert and Calm (0) ha1 03:02 Drug: metoCLOPramide IVP 10 mg Route: IVP; Site: left upper arm; ha1 03:30 Follow up: Response: No adverse reaction ha1 03:05 Drug: Ondansetron IVP 8 mg Route: IVP; Site: left upper arm; ha1 03:30 Follow up: Response: No adverse reaction; Nausea is decreased ha1 03:10 Drug: Ketorolac IVP 30 mg Route: IVP; Site: left upper arm; ha1 03:30 Follow up: Response: No adverse reaction; Pain is decreased ha1 03:40 Drug: NS 0.9% IV 1000 ml Route: IV; Rate: 1 bolus; Site: left upper arm; ha1 05:27 Follow up: Response: No adverse reaction; IV Status: Completed infusion; IV Intake: ha1 1000ml 07:44 Drug: NS 0.45 % with KCl IV 20 mEq/L 1000 ml Route: IV; Rate: 125 ml/hr; Site: left kc6 forearm; Disposition: 05:17 Co-signature as Attending Physician, Peter Burkett MD. sp4 Disposition Summary: 01/22/23 08:09 Hospitalization Ordered Hospitalization Status: Inpatient Admission ms3 Provider: Wilber Hansen ms3 Condition: Stable ms3 Problem: new ms3 Symptoms: are unchanged ms3 Bed/Room Type: Standard ms3 Location: Telemetry/MedSurg (Inpatient)(01/22/23 15:07) [id number] Room Assignment: 409(01/22/23 15:07) ja1 Diagnosis - Acute pancreatitis with infected necrosis, unspecified ms3 - Abdominal pain, unspecified ms3 Discharge Instructions: - Discharge Summary Sheet ha1 Forms: - Medication Reconciliation Form ms3 - SBAR form ha1 Signatures: Dispatcher [employer] EDMS Attema, Refugio, FACING CUTTING MACHINE OPERATOR-C FACING CUTTING MACHINE OPERATOR-Cla1 Marquez Bhardwaj RN RN ja1 Erin Aranda Marcus, DO ms3 Anika Guerrero, MICHELLE RN ha1 Gabrielle Andino RN RN kc6 Nisha reyes RN RN pf1 Peter Burkett MD MD sp4 Corrections: (The following items were deleted from the chart) 01:37 CREATINE PHOSPHOKINASE+C.LAB.BRZ ordered. EDMS EDMS 01:37 Troponin High Sensitivity+C.LAB.BRZ ordered. EDMS EDMS 08:09 Telemetry/MedSurg (Inpatient) ms3 eb 09: 08:09 ms3 eb 15: 09:31 [facility] ER [place] [id number] : 09:31 [facility]- ja1
--- NOTE | 2023-01-22 08:14 | RAD REPORT ---
EXAM DESCRIPTION: US - Abdomen Exam Limited - 01/22/2023 5:23 am CLINICAL HISTORY: RUQ abd pain COMPARISON: Abdomen Pelvis W Contrast dated 01/22/2023; Abdomen Exam Limited dated 11/19/2018 TECHNIQUE: Sonographic grayscale and color flow images of the right upper abdominal quadrant were obtained. FINDINGS: The gallbladder demonstrates a small gallstone at the neck measuring 7 millimeter with pos terior acoustic shadowing. Few tiny echogenic foci with comet tail artifact along the anti dependent wall of the gallbladder, could represent adherent tiny calculi or early changes of adenomyomatosis. N o pericholecystic fluid or gallbladder wall thickening. The common bile duct is normal measuring 4 mm . The liver demonstrates no findings of intrahepatic biliary dilatation. IMPRESSION: Cholelithiasis. Possible tiny adherent wall calculi versus early changes of adenomyomato sis. No sonographic findings of acute cholecystitis. No intra or extrahepatic biliary ductal dilation.
[2023-01-22] MEDS ORDERED: MORPHINE 4 MG/ML SYR IV PRN (09:01)
[2023-01-22] MEDS ORDERED: ONDANSETRON 4 MG/2 ML VIAL IV PRN (09:01)
[2023-01-22 09:31] VITALS: BMI 32.4
[2023-01-22] MEDS: NA CHLORIDE 0.9% 1,000 ML IV SCH ×2 (09:53→18:00)
[2023-01-23 04:29] LABS: Absolute Lymphocytes (CBC) 1.1 K/uL (0.7-4.9); Hematocrit 37.5 % (36.0-45.0); Lymphocytes % 11.1 % (15.3-44.8); MPV 7.6 fL (7.6-11.3); RBC Red Blood Cell Count 4.41 M/uL (3.86-4.86)
[2023-01-23 04:31] LABS: Protime INR 1.1
[2023-01-23 04:52] LABS: Bilirubin Direct 0.2 mg/dL (0-0.2); Bilirubin Total 0.8 mg/dL (0.2-1.0); Potassium 3.8 mEq/L (3.5-5.1); Protein, Total 6.2 g/dL (6.4-8.2)
[2023-01-23] MEDS: LEVOTHYROXINE SOD 0.025 MG TAB PO SCH (06:01)
[2023-01-23] MEDS: LEVOTHYROXINE SOD 0.112 MG TAB PO SCH (06:01)
[2023-01-23] MEDS: NA CHLORIDE 0.9% 1,000 ML IV SCH ×3 (06:02→17:56)
[2023-01-23] MEDS ORDERED: HOME MED 1 EA UNK (Levothyroxine Sodium [Synthroid] 137 MCG Tablet) PO SCH (06:30)
[2023-01-23] MEDS: ACETAMINOPHEN 325 MG TABLET PO PRN ×2 (06:48→21:20)
--- NOTE | 2023-01-23 10:42 | P.HP ---
Certification for Inpatient Patient admitted to: Inpatient With expected LOS: >2 Midnights Patient will require the following post-hospital care: None Practitioner: I am a practitioner with admitting privileges, knowledge of patient current condition, hospital course, and medical plan of care. Services: Services provided to patient in accordance with Admission requirements found in Title 42 Section 412.3 of the Code of Federal Regulations Patient History Date of Service: 01/22/23 Reason for admission: alcoholic/gallstone pancreatitis History of Present Illness: patient is a very pleasant 67-year-old female who comes into the hospital with abdominal pain along with intractable nausea and vomiting. Patient was pain was in the epigastric region. Patient states she has had similar episodes a couple times in the past. Patient's lipase levels came back significantly elevated. Patient was found to have acute pancreatitis. Patient's LFTs were also elevated. Patient had abdominal ultrasound which revealed gallstones. There was concern for gallstone pancreatitis. Patient states that she was drinking the last time she had pancreatitis. She does not drink normally but she is a social drinker. She was drinking yesterday as well. This may be related to alcohol use and she may need to refrain from all alcohol use: 4. At this time, she does have acute pancreatitis. There is no evidence of necrosis. Will go ahead and start patient on IV fluids. Will do aggressive IV hydration and keep patient NPO. Will repeat lipase level as well as LFTs. If patient's labs continue to worsen will get GI consultation as patient may need ERCP. At this time patient will be admitted to the hospital for further evaluation as her lipase levels are almost 3000. Allergies Sulfa (Sulfonamide Antibiotics) Allergy (Verified 11/19/18 06:02) Rash Home Medications: Levothyroxine Sodium [Synthroid] 1 tab PO 0630 11/19/18 Liothyronine Sodium [Cytomel] 1 tab PO DAILY 11/19/18 Telmisartan 1 tab PO DAILY 11/19/18 Bupropion HCl [Wellbutrin] 150 mg PO 1X 01/22/23 Hydroxychloroquine [Plaquenil] 200 mg PO DAILY 01/22/23 Prednisone [Art] 5 mg PO 1X 01/22/23 - Past Medical/Surgical History Has patient received pneumonia vaccine in the past: Yes Diabetic: No -: HTN -: hypothyroidism -: pancreatitis Past Surgical History: Patient denies surgical history - Family History Father Family History: Reviewed- Non-Contributory - Social History Smoking Status: Unknown if ever smoked Alcohol use: Yes CD- Drugs: No Place of Residence: Home Review of Systems 10-point ROS is otherwise unremarkable Physical Examination - Vital Signs Temperature: 98.4 F Blood Pressure: 120/64 Pulse: 76 Respirations: 16 Pulse Ox (%): 91 - Physical Exam General: Alert, In no apparent distress, Oriented x3 HEENT: Atraumatic, PERRLA, Mucous membr. moist/pink, EOMI, Sclerae nonicteric Neck: Supple, 2+ carotid pulse no bruit, No LAD, Without JVD or thyroid abnormality Respiratory: Clear to auscultation bilaterally, Normal air movement Cardiovascular: Regular rate/rhythm, Normal S1 S2 Gastrointestinal: Normal bowel sounds, Soft and benign, Non-distended, No rebound, No guarding, Tenderness Musculoskeletal: No clubbing, No swelling, No tenderness Integumentary: No rashes Neurological: Normal gait, Normal speech, Normal strength at 5/5 x4 extr, Normal tone, Normal affect Lymphatics: No axilla or inguinal lymphadenopathy Assessment & Plan - Problems (Diagnosis) (1) Acute pancreatitis Current Visit: No Status: Acute Qualifiers: (2) Alcohol use Current Visit: No Status: Chronic (3) HTN (hypertension) Current Visit: No Status: Chronic (4) Hypothyroidism Current Visit: No Status: Chronic Qualifiers: - Plan -aggressive IV hydration -IV pain controlled -? GI consultation if pain does not improve -CT abdomen pelvis with no necrosis -NPO -OUTPATIENT SURGERY CONSULTATION PATIENT WITH CHOLELITHIASIS. Patient may be having gallstone pancreatitis. May need to remove gallbladder at this junction. However, in the setting of acute pancreatitis will probably wait and have this done electively as an outpatient. Discharge Plan: Home Plan to discharge in: Greater than 2 days - Advance Directives Does patient have a Living Will: No Does patient have a Durable POA for Healthcare: No - Code Status/Comfort Care Code Status Assessed: Yes Code Status: Full Code Critical Care: No Time Spent Managing PTS Care (In Minutes): 45
[2023-01-24] MEDS: NA CHLORIDE 0.9% 1,000 ML IV SCH ×2 (01:58→09:44)
[2023-01-24] MEDS: LEVOTHYROXINE SOD 0.112 MG TAB PO SCH (06:23)
[2023-01-24] MEDS: LEVOTHYROXINE SOD 0.025 MG TAB PO SCH (06:23)
[2023-01-24 06:53] LABS: Absolute Lymphocytes (CBC) 1.6 K/uL (0.7-4.9); Hematocrit 34.8 % (36.0-45.0); Lymphocytes % 17.9 % (15.3-44.8); MCV 84.7 fL (80-100); MPV 7.5 fL (7.6-11.3); RBC Red Blood Cell Count 4.11 M/uL (3.86-4.86)
[2023-01-24 07:11] LABS: Albumin 2.7 g/dL (3.4-5.0); Bilirubin Total 0.9 mg/dL (0.2-1.0); Magnesium 2.1 mg/dL (1.6-2.4); Potassium 4.3 mEq/L (3.5-5.1); Protein, Total 5.9 g/dL (6.4-8.2)
[2023-01-24 08:51] VITALS: BP 130/67; TEMP 98
[2023-01-24 09:54] VITALS: O2SAT 95
--- NOTE | 2023-01-24 12:43 | EKG ---
Test Date: 2023-01-22 Test Time: 04:42:53 [employer] Mate: MIHAI MEASUREMENT RESULTS: Intervals: Rate: 86 TX: 152 QRSD: 92 QT: 386 QTc: 461 Dickey: P: 44 TX: 152 QRS: -26 T: 23 INTERPRETIVE STATEMENTS: Normal sinus rhythm Normal ECG Compared to ECG 11/18/2018 23:50:07 Sinus bradycardia no longer present Electronically Signed On 01-24-23 12:37:39 CDT by Andres Carbajal
== END 2023-01-24 10:17 | disposition home or self-care (01) | DRG 440 ==
LOC: ER 00:56 → ERHOLD 09:01 → 4TH 15:26
PROVIDERS: ADMIT Hospitalist; ATTEND Hospitalist
DX: K85.20 Alcohol induced acute pancreatitis without necrosis or infection (principal); I10 Essential (primary) hypertension; E03.9 Hypothyroidism, unspecified; F10.90 Alcohol use, unspecified, uncomplicated; K85.10 Biliary acute pancreatitis without necrosis or infection; Z88.1 Allergy status to other antibiotic agents; Z79.52 Long term (current) use of systemic steroids; Z79.899 Other long term (current) drug therapy; Z79.890 Hormone replacement therapy
CPT/HCPCS: 36415; 74177; 76705; 80048; 80053; 80061; 80076; 81001; 82550; 83690; 83735; 84484; 85025; 85610; 85730; 93005; 99285; J2405; J2765; J7030; Q9967